=== PATIENT | male | born 1965 | race Caucasian/White ===

== ENCOUNTER 2016-05-26 06:59 | Emergency (ER) | payer BC, OTHER ==
[2016-05-26] MEDS ORDERED: METOPROLOL TARTRATE 50 MG TABLET PO ONE (09:24)
[2016-05-26] MEDS ORDERED: OXYCODONE-ACETAMINOPHEN 5-325 MG TABLET PO ONE (09:24)
[2016-05-26] MEDS ORDERED: SULFAMETHOXAZOLE/TRIMETHOPRIM 800-160 MG TABLET PO ONE (09:26)
[2016-05-26] MEDS ORDERED: LIDOCAINE 1% INJ-PF (10 MG/ML) 30 ML SDV INJ ONE (09:26)
--- NOTE | 2016-05-26 09:29 | ER Document Report ---
ED General - General Mode of Arrival: Ambulatory Information source: Patient TRAVEL OUTSIDE OF THE [place] IN LAST 30 DAYS: No - HPI Patient complains to provider of: Scrotal Pain Onset/Duration: Gradual, Persistent Associated symptoms: Chest pain - Now resolved. Off Blood pressure medication <ALENA CLAY - Last Filed: 05/26/16 09:24> <STEPHANI CROWLEY - Last Filed: 05/26/16 11:03> - General Chief Complaint: Chest Pressure Stated Complaint: CHILLS CHEST PRESSURE Notes: Patient is a 50-year-old male presenting to the emergency department concerned of a red, swollen area on the right side of his scrotum. 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 Patient reports performing these I&D' s by himself at home most of the time now, but he could not see this one well, so decided to come into the emergency department. Patient also complains of some chest pressure that he last night that is now resolved. Patient states he 's been off his metoprolol because he was trying to cut back medications to "avoid this place like the plague." (ALENA CLAY) - Related Data Allergies/Adverse Reactions: No Known Allergies Allergy (Verified 01/08/16 02:27) Past Medical History - General Information source: Patient - Social History Smoking Status: Current Every Day Smoker Chew tobacco use (# tins/day): No Frequency of alcohol use: None Drug Abuse: None Family History: Reviewed & Not Pertinent Patient has suicidal ideation: No Patient has homicidal ideation: No - Past Medical History Cardiac Medical History: Reports: Hx Hypertension Pulmonary Medical History: Reports: Hx Bronchitis, Hx COPD, Hx Pneumonia Renal/ Medical History: Denies: Hx Peritoneal Dialysis Musculoskeltal Medical History: Reports Hx Arthritis - back/fusion 2007 Skin Medical History: Reports Hx MRSA - multiple I&D Infectious Medical History: Reports: Hx MRSA Past Surgical History: Reports: Hx Cholecystectomy, Hx Orthopedic Surgery - L4- L5 fusion - Immunizations Hx Diphtheria, Pertussis, Tetanus Vaccination: Yes - 2009 <ALENA CLAY - Last Filed: 05/26/16 09:24> Review of Systems - Review of Systems Constitutional: No symptoms reported EENT: No symptoms reported Cardiovascular: See HPI, Chest pain - Pressure, now resolved Respiratory: No symptoms reported Gastrointestinal: No symptoms reported Genitourinary: No symptoms reported Male Genitourinary: See HPI, Other - swollen, painful area on scrotum Musculoskeletal: No symptoms reported Skin: No symptoms reported Hematologic/Lymphatic: No symptoms reported Neurological/Psychological: No symptoms reported -: Yes All other systems reviewed and negative <ALENA CLAY - Last Filed: 05/26/16 09:24> Physical Exam - General General appearance: Appears well, Alert - HEENT Head: Normocephalic, Atraumatic Eyes: Normal Pupils: PERRL - Respiratory Respiratory status: No respiratory distress Chest status: Nontender, Accessory muscle use Chest palpation: Normal - Cardiovascular Rhythm: Regular Heart sounds: Normal auscultation Murmur: No - Abdominal Inspection: Normal Distension: No distension Bowel sounds: Normal Tenderness: Nontender Organomegaly: No organomegaly - Genitourinary Scrotum: Other - Firm, hot, swollen 1.5 cm mass on right scrotum near perineal junction. - Back Back: Normal, Nontender - Extremities General upper extremity: Normal inspection, Nontender General lower extremity: Normal inspection, Nontender - Neurological Neuro grossly intact: Yes Cognition: Normal Mena Coma Scale Eye Opening: Spontaneous Mena Coma Scale Verbal: Oriented Naga Coma Scale Motor: Obeys Commands Naga Coma Scale Total: 15 Speech: Normal - Psychological Associated symptoms: Normal affect, Normal mood - Skin Skin Temperature: Warm Skin Moisture: Dry Skin Color: Other Skin irregularity: other - See scrotum exam <ALENA CLAY - Last Filed: 05/26/16 09:24> Course <ALENA CLAY - Last Filed: 05/26/16 09:24> - Laboratory Result Diagrams: 05/26/16 09:36 05/26/16 09:36 - EKG Interpretation by [facility] EKG shows normal: Sinus rhythm, Krum, Intervals, QRS Complexes, ST-T Waves Rate: Tachycardia - 116 When compared to previous EKG there are: No significant change <STEPHANI CROWLEY - Last Filed: 05/26/16 11:03> - Re-evaluation Re-evalutation: 05/26/16 10:49 The patient reports after metoprolol began to work and lowered his blood pressure and pulse rate, the chest pressure went away. He had been on metoprolol in the past but stopped taking it. He states his blood pressure seems to be fine most the time and only goes up when he is in pain or in distress or under duress. He has never been on long-term treatment to eradicate MRSA. Previously cultured abscesses show MRSA which is sensitive to Septra. (STEPHANI CROWLEY) - Vital Signs Vital signs: Temp Pulse Resp BP Pulse Ox 97.8 F 121 H 18 157/100 H 98 05/26/16 07:15 05/26/16 07:15 05/26/16 07:15 05/26/16 07:15 05/26/16 07:15 - Laboratory Laboratory results interpreted by me: 05/26/16 09:36 WBC 14.1 H Absolute Neutrophils 10.7 H Procedures <ALENA CLAY - Last Filed: 05/26/16 09:24> - Incision and Drainage Right Groin Time completed: 10:40 Type: Simple Anesthetic type: 1% Lidocaine mL's of anesthetic: 3 Blade size: 11 I&D procedure: Shurclens applied, Iodoform packing placed Incision Method: Incision made by scalpel Amount/type of drainage: minimal drainage <STEPHANI CROWLEY - Last Filed: 05/26/16 11:03> - Incision and Drainage Right Groin Notes: 05/26/16 10:47 The indurated area was fairly large, the actual cavity was small with a lot of scar tissue suggesting he had had abscesses in this area previously. There was minimal drainage and it did appear that it probably drained some previously. ( STEPHANI CROWLEY) Discharge <ALENA CLAY - Last Filed: 05/26/16 09:24> <STEPHANI CROWLEY - Last Filed: 05/26/16 11:03> - Discharge Clinical Impression: Scrotal wall abscess, Chest tightness or pressure, Tachycardia Hypertension Qualifiers: Hypertension type: essential hypertension Qualified Code(s): I10 - Essential ( primary) hypertension Condition: Stable Disposition: HOME, SELF-CARE Additional Instructions: Take the medications as prescribed Soak in a warm tub water a few times a day. Remove the gauze tomorrow afternoon. Follow-up with your primary care provider for further evaluation of your chest discomfort that occurs when you blood pressure and heart rate are up. Prescriptions: Metoprolol Tartrate [Lopressor 50 mg Tablet] 50 mg PO Q12H #60 tablet Oxycodone HCl/Acetaminophen [Percocet 5-325 mg Tablet] 1 - 2 tab PO ASDIR PRN # 15 tablet PRN Reason: Sulfamethoxazole/Trimethoprim [Bactrim Ds Tablet] 2 tab PO BID #40 tablet Forms: Return to Work Referrals: ED MOORE, KRISTAC [Primary Care Provider] - Follow up as needed Scribe Attestation: 05/26/16 10:59 I personally performed the services described in the documentation, reviewed and edited the documentation which was dictated to the scribe in my presence, and it accurately records my words and actions. (STEPHANI CROWLEY) Scribe Documentation - Scribe Written by Rodney:: Alena Clay 05/26/2016 0924 acting as scribe for :: Gomez <ALENA CLAY - Last Filed: 05/26/16 09:24>
[2016-05-26 09:49] LABS: ABSOLUTE BASOPHILS # (AUTO) 0.1 10^3/uL (0.0-0.2); ABSOLUTE EOSINOPHILS # (AUTO) 0.1 10^3/uL (0.0-0.6); ABSOLUTE LYMPHOCYTES (AUTO) 2.5 10^3/uL (0.5-4.7); ABSOLUTE MONOCYTES (AUTO) 0.7 10^3/uL (0.1-1.4); ABSOLUTE NEUT (AUTO) 10.7 10^3/uL (1.7-8.2); BASOPHILS % (AUTO) 0.6 % (0-2); EOSINOPHILS % (AUTO) 0.6 % (0-6); HEMOGLOBIN 16.3 g/dL (13.5-17.0); HGB HCT DIFFERENCE 0.9; LYMPHOCYTES % (AUTO) 17.8 % (13-45); MEAN CORPUSCULAR HEMOGLOBIN 30.8 pg (27.0-33.4); MEAN CORPUSCULAR VOLUME 90 fl (80-97); MONOCYTES % (AUTO) 5.2 % (3-13); RED BLOOD COUNT 5.31 10^6/uL (4.35-5.55); RED CELL DISTRIBUTION WIDTH 13.5 % (11.5-14.0); SEGMENTED NEUTROPHILS % (AUTO) 75.8 % (42-78); WHITE BLOOD COUNT 14.1 10^3/uL (4.0-10.5)
[2016-05-26 10:13] LABS: ALANINE AMINOTRANSFERASE 56 U/L (21-72); ALBUMIN 4.1 g/dL (3.5-5.0); ALKALINE PHOSPHATASE 74 U/L (38-126); ANION GAP 14 (5-19); ASPARTATE AMINO TRANSFERASE 22 U/L (17-59); BILIRUBIN,DIRECT 0.3 mg/dL (0.0-0.4); BILIRUBIN,TOTAL 0.7 mg/dL (0.2-1.3); BLOOD UREA NITROGEN 9 mg/dL (7-20); CALCIUM 9.8 mg/dL (8.4-10.2); CARBON DIOXIDE 24 mmol/L (22-30); CHLORIDE 105 mmol/L (98-107); CREATINE KINASE 108 U/L (55-170); CREATININE RESULT 0.87 mg/dL (0.52-1.25); GLUCOSE 97 mg/dL (75-110); POTASSIUM 4.4 mmol/L (3.6-5.0); SODIUM 143.3 mmol/L (137-145); TOTAL PROTEIN 6.6 g/dL (6.3-8.2)
--- NOTE | 2016-05-26 11:00 | EKG REPORT ---
SEVERITY:- OTHERWISE NORMAL ECG - SINUS TACHYCARDIA : Confirmed by: José Mart 26-May-2016 10:58:58
[2016-05-26 11:25] VITALS: BP 121/75
== END 2016-05-26 11:28 | disposition home or self-care (01) ==
LOC: ER 06:59
PROC: 0H9HXZZ Drainage of Right Upper Leg Skin, External Approach (ICD-10-PCS; principal; 2016-05-26)
DX: N49.2 Inflammatory disorders of scrotum (principal); R00.0 Tachycardia, unspecified; I10 Essential (primary) hypertension; R07.9 Chest pain, unspecified; F17.200 Nicotine dependence, unspecified, uncomplicated
CPT/HCPCS: 93005; 99284; 36415; 82550; 85025; 80053; 84484; 93010; 10060; J3490

== ENCOUNTER 2016-09-21 23:33 | Emergency (ER) | payer BC, OTHER ==
[2016-09-22] MEDS ORDERED: LIDOCAINE 1% INJ-PF (10 MG/ML) 30 ML SDV INJ ONE (00:30)
--- NOTE | 2016-09-22 00:30 | ER Document Report ---
ED General <JERRICA CROWLEYALL - Last Filed: 09/22/16 01:58> - General Mode of Arrival: Ambulatory Information source: Patient TRAVEL OUTSIDE OF THE [place] IN LAST 30 DAYS: No - HPI Onset: Other - Refer to HPI notes Similar symptoms previously: Yes Recently seen / treated by doctor: Yes <DA FONTENOT - Last Filed: 09/22/16 02:24> - General Chief Complaint: Post Surgical Pain Stated Complaint: POST SURGICAL PAIN Time Seen by Provider: 09/22/16 00:13 Notes: Patient is a 50-year-old male presents emergency department for draining MRSA cysts. Patient has 2 cysts and one of them on his buttocks ruptured and started draining x2 days ago and appears to be finished. The other has ruptured and the patient states his was able to squeeze some pus like fluid out of it today. Patient is 10 days post op from a spinal surgery. Patient had a laminectomy with decompression of the left L2-L3 on 09/11/2016. Patient has some generalized body pain. Patient took 2 oxycodone, clindamycin, and 4 bactrum. Patient states he had these medications at his house however he ran out of bactrum. Patient also has some chills and possibly a low grade fever. Patient has no known drug allergies. (DA FONTENOT) - Related Data Allergies/Adverse Reactions: No Known Allergies Allergy (Verified 01/08/16 02:27) Past Medical History - General Information source: Patient - Social History Smoking Status: Never Smoker Family History: None Patient has suicidal ideation: No Patient has homicidal ideation: No - Past Medical History Cardiac Medical History: Reports: Hx Hypertension Pulmonary Medical History: Reports: Hx Bronchitis, Hx COPD, Hx Pneumonia Musculoskeltal Medical History: Reports Hx Arthritis - back/fusion 2006 Skin Medical History: Reports Hx MRSA - multiple I&D Infectious Medical History: Reports: Hx MRSA Past Surgical History: Reports: Hx Cholecystectomy, Hx Orthopedic Surgery - L4- L5 fusion (2006) left L2-L3 laminectomy with decompression - Immunizations Hx Diphtheria, Pertussis, Tetanus Vaccination: Yes - 2009 <DA FONTENOT - Last Filed: 09/22/16 02:24> Review of Systems - Review of Systems Constitutional: No symptoms reported EENT: No symptoms reported Cardiovascular: No symptoms reported Respiratory: No symptoms reported Gastrointestinal: No symptoms reported Genitourinary: No symptoms reported Male Genitourinary: No symptoms reported Musculoskeletal: No symptoms reported Skin: See HPI Hematologic/Lymphatic: No symptoms reported Neurological/Psychological: No symptoms reported -: Yes All other systems reviewed and negative <TREVONDA ARIAS - Last Filed: 09/22/16 02:24> Physical Exam <STEPHANI CROWLEY - Last Filed: 09/22/16 01:58> - Vital signs Interpretation: Tachycardic <DA FONTENOT - Last Filed: 09/22/16 02:24> - Vital signs Vitals: Temp Pulse Resp BP Pulse Ox 97.9 F 116 H 16 129/90 H 98 09/21/16 23:37 09/21/16 23:37 09/21/16 23:37 09/21/16 23:37 09/21/16 23:37 - Notes Notes: GENERAL: Alert, interacts well, laying on side with a pillow between legs. Mild distress. HEAD: Normocephalic, atraumatic. EYES: Appear normal. Pupils equal, round, and reactive to light. ENT: Moist mucus membranes, tongue midline. NECK: Full range of motion. Supple. Trachea midline. LUNGS: Clear to auscultation bilaterally, no wheezes, rales, or rhonchi. No respiratory distress. HEART: Regular rate and rhythm. No murmurs, gallops, or rubs. ABDOMEN: Soft, non-tender. Non-distended. Normal bowel sounds. EXTREMITIES: Moves all 4 extremities spontaneously. Normal strength. No edema. NEUROLOGICAL: Alert and oriented x3. Normal speech. No focal neurological deficits. GSC 15. PSYCH: Normal affect, normal mood. SKIN: Warm, dry, normal turgor. Healing cyst area to the left buttocks that is dry and open. Right mid buttocks-perineal area has a firm, tender, indurated area. Midline lumbar incision is well healing with a scabbed area at the top. ( POLEÓNDA) Course <STEPHANI CROWLEY - Last Filed: 09/22/16 01:58> <LEÓN FONTENOTINE - Last Filed: 09/22/16 02:24> - Re-evaluation Re-evalutation: 09/22/16 01:58 The large indurated area was anesthetized with 1% lidocaine and incised with a # 11 blade. There was no pus found, as the patient reports a large amount had drained when it was squeezed prior to coming into the emergency room. There was a fair amount of necrotic fat and scar tissue encountered similar to the last time I did an I&D on his groin area. (STEPHANI CROWLEY) - Vital Signs Vital signs: Temp Pulse Resp BP Pulse Ox 98.0 F 116 H 16 111/87 H 97 09/22/16 02:00 09/21/16 23:37 09/22/16 02:01 09/22/16 02:00 09/22/16 02:01 Procedures - Incision and Drainage Right Groin Time completed: :55 Type: Simple Anesthetic type: 1% Lidocaine mL's of anesthetic: 5 Blade size: 11 I&D procedure: Shurclens applied, Iodoform packing placed Incision Method: Incision made by scalpel Amount/type of drainage: NONE <STEPHANI CROWLEY - Last Filed: 09/22/16 01:58> Discharge <STEPHANI CROWLEY - Last Filed: 09/22/16 01:58> <DA FONTENOT - Last Filed: 09/22/16 02:24> - Discharge Clinical Impression: Abscess of groin, right Condition: Stable Disposition: HOME, SELF-CARE Additional Instructions: Abscess You have an abscess (boil). This a pus-forming infection, usually due to staph. Some boils may be left to drain on their own, but most require lancing. From the time the tender lump first appears, it may be three or four days before the abscess is ready to shelly. Local heat and rest help at this stage of treatment. An antibiotic may prevent spread of the infection. Once the abscess is opened, packing may be placed into it. This is done so pus is not sealed inside by premature closure of the cavity. The packing will be removed at your follow-up visit or you may be advised to remove it yourself at home. Sometimes this packing must be replaced a few times during healing. The wound will heal with surprisingly little scar. Depending on the size and location of an abscess, healing can take one to four weeks. You may shower and wash the area around the incision site two or three times a day. Antibiotics may be prescribed, but are usually not necessary after an abscess has been drained. If you develop fever, chilling, worsening pain, or increasing swelling in the area, call the doctor or return immediately. Remove the packing in 2 days. Keep the wound open using Q-tips dipped in peroxide. Add the antibiotics as prescribed to the clindamycin you are currently taking. Follow-up with your doctor if not improving. RETURN TO THE EMERGENCY ROOM IF ANY NEW OR WORSENING SYMPTOMS. Prescriptions: Sulfamethoxazole/Trimethoprim [Bactrim Ds Tablet] 2 tab PO BID #40 tablet Scribe Attestation: 09/22/16 02:00 I personally performed the services described in the documentation, reviewed and edited the documentation which was dictated to the scribe in my presence, and it accurately records my words and actions. (STEPHANI CROWLEY) Scribe Documentation - Scribe Written by Rodney:: Rodney Garland, 09/22/2016 2:22 acting as scribe for :: Gomez <DA FONTENOT - Last Filed: 09/22/16 02:24>
[2016-09-22] MEDS ORDERED: SULFAMETHOXAZOLE/TRIMETHOPRIM 800-160 MG TABLET PO ONE (01:57)
[2016-09-22 02:12] VITALS: BP 111/87
== END 2016-09-22 02:12 | disposition home or self-care (01) ==
LOC: ER 23:33
PROC: 0H9HXZZ Drainage of Right Upper Leg Skin, External Approach (ICD-10-PCS; principal; 2016-09-21)
DX: L02.214 Cutaneous abscess of groin (principal); G89.18 Other acute postprocedural pain; R50.9 Fever, unspecified; Z86.14 Personal history of Methicillin resistant Staphylococcus aureus infection
CPT/HCPCS: 99283

== ENCOUNTER 2016-11-26 11:09 | Emergency (ER) | payer BC, OTHER ==
[2016-11-26] MEDS ORDERED: LIDOCAINE 1% INJ-PF (10 MG/ML) 30 ML SDV INJ ONE (12:05)
--- NOTE | 2016-11-26 12:10 | ER Document Report ---
HPI - HPI Pain Level: 4 Notes: Patient is a 50-year-old male with a history of MRSA and recurrent abscesses presents the ED complaining of 3 abscesses to his groin area 5 days. Patient states that he has one large one in the perineal area that most likely needs incision and drainage, while the other 2 are small and early. Patient states that he has been taking his Bactrim with minimal relief. He has not noticed any purulent discharge. Patient has associated pain and swelling without any red streaks. Patient states that he has had several I&D's in the past because of recurrent abscesses/MRSA infections. He denies any drug allergies or other significant past medical history. Denies any headache, fever, URI, sore throat , chest pain, palpitations, syncope, cough, shortness of breath, wheeze, dyspnea , abdominal pain, nausea/vomiting/diarrhea, urinary retention, dysuria, hematuria, loss of control of bowel or bladder, numbness/tingling. - ROS Notes: REVIEW OF SYSTEMS: CONSTITUTIONAL : Denies fever, chills, or sweats. Denies recent illness. EENT: Denies eye, ear, throat, or mouth pain or symptoms. Denies nasal or sinus congestion or discharge. Denies throat, tongue, or mouth swelling or difficulty swallowing. CARDIOVASCULAR: Denies chest pain. Denies palpitations or racing or irregular heart beat. Denies ankle edema. RESPIRATORY: Denies cough, cold, or chest congestion. Denies shortness of breath, difficulty breathing, or wheezing. GASTROINTESTINAL: Denies abdominal pain or distention. Denies nausea, vomiting , or diarrhea. Denies blood in vomitus, stools, or per rectum. Denies black, tarry stools. Denies constipation. GENITOURINARY: Denies difficulty urinating, painful urination, burning, frequency, blood in urine, or discharge. MUSCULOSKELETAL: Denies back or neck pain or stiffness. Denies joint pain or swelling. SKIN: see hpi NEUROLOGICAL: Denies confusion or altered mental status. Denies passing out or loss of consciousness. Denies dizziness or lightheadedness. Denies headache. Denies weakness or paralysis or loss of use of either side. Denies problems with gait or speech. Denies sensory loss, numbness, or tingling. ALL OTHER SYSTEMS REVIEWED AND NEGATIVE. Dictation was performed using Dragon voice recognition software - DERM Skin Color: Normal Past Medical History - Social History Smoking Status: Unknown if Ever Smoked Family History: None Patient has suicidal ideation: No Patient has homicidal ideation: No - Past Medical History Cardiac Medical History: Reports: Hx Hypertension Pulmonary Medical History: Reports: Hx Bronchitis, Hx COPD, Hx Pneumonia Renal/ Medical History: Denies: Hx Peritoneal Dialysis Musculoskeltal Medical History: Reports Hx Arthritis - back/fusion 2006 Skin Medical History: Reports Hx MRSA - multiple I&D Infectious Medical History: Reports: Hx MRSA Past Surgical History: Reports: Hx Cholecystectomy, Hx Orthopedic Surgery - L4- L5 fusion (2006) left L2-L3 laminectomy with decompression - Immunizations Hx Diphtheria, Pertussis, Tetanus Vaccination: Yes - 2009 Vertical Provider Document - CONSTITUTIONAL Agree With Documented VS: Yes Notes: PHYSICAL EXAMINATION: GENERAL: Well-appearing, well-nourished and in no acute distress. LUNGS: Breath sounds clear to auscultation bilaterally and equal. No wheezes rales or rhonchi. HEART: Regular rate and rhythm without murmurs, rubs, gallops. ABDOMEN: Soft, nontender, nondistended abdomen. No guarding, no rebound. No masses appreciated. Normal bowel sounds present. No CVA tenderness bilaterally. Musculoskeletal: LE's b/l: FROM to passive/active. Strength 5+/5. Extremities: No cyanosis, clubbing, or edema b/l. Peripheral pulses 2+. Capillary refill less than 3 seconds. NEUROLOGICAL: Cranial nerves grossly intact. Normal speech, normal gait. Normal sensory, motor exams PSYCH: Normal mood, normal affect. SKIN: Small 0.2cm abscess to the b/l groin. + mild tenderness and mild induration. + 3cm abscess/indurated area to the perineum with tenderness to palp. No discharge or streaks noted. No obvious inguinal adenopathy. - INFECTION CONTROL TRAVEL OUTSIDE OF THE [place] IN LAST 30 DAYS: No - RESPIRATORY O2 Sat by Pulse Oximetry: 98 Course - Re-evaluation Re-evalutation: 11/26/16 13:07 Patient is an afebrile, well-hydrated, 50-year-old male who presents the ED with an abscess to the perineum area that required I&D as well as 2 smaller abscesses that did not warrant I&D at this time. Vitals are stable. PE otherwise unremarkable. Wound culture was obtained. I&D was performed successfully without any complications and packing was placed. Wound dressing was placed. Wound instructions were reviewed. I will send the patient home on clindamycin to take as directed 4 times a day for 10 days, patient may stop the Bactrim. C. difficile precautions reviewed. Risks and benefits are understood. Low suspicion for any necrotizing fasciitis, sepsis, or other systemic emergent condition at this time. Patient is aware that his condition can change from initial presentation and he needs to monitor symptoms closely and seek medical attention if any acute changes. Recheck with your PCM in 2-3 days, come to the ED for recheck if needed. Return to the ED otherwise for any worsening/concerning symptoms. Consider consult with a general surgeon as well. Patient is in agreement. - Vital Signs Vital signs: Temp Pulse Resp BP Pulse Ox 98.7 F 110 H 18 143/103 H 98 11/26/16 11:15 11/26/16 11:15 11/26/16 11:15 11/26/16 11:15 11/26/16 11:15 Procedures - Incision and Drainage Left Groin Time completed: 13:05 Type: Simple Anesthetic type: 1% Lidocaine mL's of anesthetic: 8 Blade size: 11 I&D procedure: Iodoform packing placed, Sterile dressing applied, Other - chlorhexadine Incision Method: Incision made by scalpel Amount/type of drainage: Purulent approx 4cc Notes: 11/26/16 13:05 Incision and drainage procedure, risks, benefits reviewed with the patient. Verbal and written consent obtained. Sterile technique utilized. The area was extensively cleansed utilizing chlorhexadine and saline. A 21-gauge needle was utilized to anesthetize the area using 6 mL's of 1% lidocaine without epinephrine. Once adequate anesthesia was provided, a #11 scalpel was utilized to make a 2 cm elliptical incision at the site of the abscess. Moderate amounts of purulent material was expressed. Wound culture obtained. Hemostats were then utilized to break up any remaining muscular pockets within the abscess. The wound was then lightly packed using 1/4" iodoform. Wound dressing and triple antibiotic placed. Minimal blood loss (approximately 2-3 cc's). Patient tolerated procedure well. No complications. Discharge - Discharge Clinical Impression: Abscess Condition: Stable Disposition: HOME, SELF-CARE Instructions: Abscess ([facility]), Clindamycin ([facility]), MRSA Cellulitis ([facility]), Post Incision and Drainage Additional Instructions: Do not shower or bathe for 24 hours. After 24 hours she may shower but no submersion of the wound under water. Keep the original dressing on the wound for 24 hours unless the drainage soaks through. Change the dressing daily thereafter and use a small amount of triple antibiotic ointment over the open wound. Return to the ED and/or your PCM in 2-3 days for recheck and continue direction for wound packing. Monitor for any signs of worsening pain or redness , streaks, and/or fever. Return to the ED if noticing any of the above symptoms or as needed. Take medications as directed. Prescriptions: Clindamycin HCl [Cleocin 300 mg Capsule] 300 mg PO TID #30 capsule Forms: Elevated Blood Pressure Referrals: HALINA MATTA MD [ACTIVE STAFF] - Follow up in 1 week
[2016-11-26 13:26] VITALS: BP 143/99
== END 2016-11-26 13:26 | disposition home or self-care (01) ==
LOC: ER 11:09
PROC: 0H9JXZZ Drainage of Left Upper Leg Skin, External Approach (ICD-10-PCS; principal; 2016-11-26)
DX: L02.214 Cutaneous abscess of groin (principal)
CPT/HCPCS: 99283; 87070; 87205; 87075; 87077; 87186; 10060; A6266; J3490

== ENCOUNTER 2017-04-15 12:22 | Emergency (ER) | payer BC, OTHER ==
[2017-04-15] MEDS ORDERED: LIDOCAINE 1% INJ-PF (10 MG/ML) 30 ML SDV INJ ONE (12:39)
--- NOTE | 2017-04-15 12:43 | ER Document Report ---
ED General - General Chief Complaint: Abscess Stated Complaint: ABSCESS Time Seen by Provider: 04/15/17 12:35 Mode of Arrival: Ambulatory Information source: Patient Notes: 51-year-old male presents with 1 week duration of right breast abscess. Patient denies any fevers or chills denies any nausea vomiting or diarrhea. Patient notes he has been using clindamycin and mupirocin the area has gotten worse TRAVEL OUTSIDE OF THE [place] IN LAST 30 DAYS: No - HPI Onset: Last week Onset/Duration: Persistent Quality of pain: Achy Severity: Mild Pain Level: 1 Associated symptoms: Other Exacerbated by: Other - touch Relieved by: Denies Similar symptoms previously: Yes - previous mrsa Recently seen / treated by doctor: No - Related Data Allergies/Adverse Reactions: No Known Allergies Allergy (Verified 04/15/17 12:23) Past Medical History - Social History Smoking Status: Never Smoker Cigarette use (# per day): No Chew tobacco use (# tins/day): No Smoking Education Provided: No Family History: None - Past Medical History Cardiac Medical History: Reports: Hx Hypertension Pulmonary Medical History: Reports: Hx Bronchitis, Hx COPD, Hx Pneumonia Renal/ Medical History: Denies: Hx Peritoneal Dialysis Musculoskeltal Medical History: Reports Hx Arthritis - back/fusion 2006 Skin Medical History: Reports Hx MRSA - multiple I&D Infectious Medical History: Reports: Hx MRSA Past Surgical History: Reports: Hx Cholecystectomy, Hx Orthopedic Surgery - L4- L5 fusion (2006) left L2-L3 laminectomy with decompression - Immunizations Hx Diphtheria, Pertussis, Tetanus Vaccination: Yes - 2009 Review of Systems - Review of Systems Notes: REVIEW OF SYSTEMS: CONSTITUTIONAL : Denies fever, chills, or sweats. Denies recent illness. EENT: Denies eye, ear, throat, or mouth pain or symptoms. Denies nasal or sinus congestion or discharge. Denies throat, tongue, or mouth swelling or difficulty swallowing. CARDIOVASCULAR: Denies chest pain. Denies palpitations or racing or irregular heart beat. Denies ankle edema. RESPIRATORY: Denies cough, cold, or chest congestion. Denies shortness of breath, difficulty breathing, or wheezing. GASTROINTESTINAL: Denies abdominal pain or distention. Denies nausea, vomiting , or diarrhea. Denies blood in vomitus, stools, or per rectum. Denies black, tarry stools. Denies constipation. GENITOURINARY: Denies difficulty urinating, painful urination, burning, frequency, blood in urine, or discharge. MUSCULOSKELETAL: Denies back or neck pain or stiffness. Denies joint pain or swelling. SKIN: right breast abscess HEMATOLOGIC : Denies easy bruising or bleeding. LYMPHATIC: Denies swollen, enlarged glands. NEUROLOGICAL: Denies confusion or altered mental status. Denies passing out or loss of consciousness. Denies dizziness or lightheadedness. Denies headache. Denies weakness or paralysis or loss of use of either side. Denies problems with gait or speech. Denies sensory loss, numbness, or tingling. Denies seizures. PSYCHIATRIC: Denies anxiety or stress. Denies depression, suicidal ideation, or homicidal ideation. ALL OTHER SYSTEMS REVIEWED AND NEGATIVE. Dictation was performed using [employer] voice recognition software PHYSICAL EXAMINATION: GENERAL: Well-appearing, well-nourished and in no acute distress. HEAD: Atraumatic, normocephalic. EYES: Pupils equal round extraocular movements intact, conjunctiva are normal. ENT: Nares patent NECK: Normal range of motion LUNGS: No respiratory distress Musculoskeletal: Normal range of motion NEUROLOGICAL: Normal speech, normal gait. PSYCH: Normal mood, normal affect. SKIN: just medial to the right nipple is an abscess tender fluctuance with some drainage, tender ot the right arm pit woithout streaking Physical Exam - Vital signs Vitals: Temp Pulse Resp BP Pulse Ox 98.1 F 113 H 20 135/91 H 97 04/15/17 12:27 04/15/17 12:27 04/15/17 12:27 04/15/17 12:27 04/15/17 12:27 Course - Re-evaluation Re-evalutation: 04/15/17 12:42 pt offered bed, would rather be cut sitting up, will I+D and continue treatment. - Vital Signs Vital signs: Temp Pulse Resp BP Pulse Ox 97.6 F 107 H 18 135/93 H 98 04/15/17 13:19 04/15/17 13:19 04/15/17 13:19 04/15/17 13:19 04/15/17 13:19 Procedures - Incision and Drainage Right Chest Time completed: 12:00 Type: Simple Anesthetic type: 1% Lidocaine mL's of anesthetic: 5 Blade size: 11 I&D procedure: Betadine prep applied, Sterile dressing applied Incision Method: Incision made by scalpel Amount/type of drainage: moderate amount of pus Discharge - Discharge Clinical Impression: Abscess of breast, right Condition: Stable Disposition: HOME, SELF-CARE Instructions: Abscess ([facility]), Post Incision and Drainage Additional Instructions: Follow up with your physician tomorrow for further care or return to the ED IMMEDIATELY if symptoms worsen or new concerns occur. If you cannot afford to follow up with your primary care physician a list of low cost clinics have been provided at the end of your discharge papers as well. Prescriptions: Hydrocodone/Acetaminophen [[place] 5-325 mg Tablet] 1 tab PO Q6 #14 tablet
[2017-04-15 13:30] VITALS: BP 135/93
== END 2017-04-15 13:20 | disposition home or self-care (01) ==
LOC: ER 12:22
PROC: 0H9TXZZ (ICD-10-PCS; principal; 2017-04-15)
DX: N61.1 Abscess of the breast and nipple (principal)
CPT/HCPCS: 99283; 10060; J3490

== ENCOUNTER 2018-10-24 10:04 | Emergency (ER) | payer BC, OTHER ==
[2018-10-24] MEDS ORDERED: ASPIRIN 81 MG TABLET, CHEWABLE PO ONE (10:13)
[2018-10-24 10:21] LABS: ABSOLUTE BASOPHILS # (AUTO) 0.1 10^3/uL (0.0-0.2); ABSOLUTE EOSINOPHILS # (AUTO) 0.3 10^3/uL (0.0-0.6); ABSOLUTE LYMPHOCYTES (AUTO) 2.4 10^3/uL (0.5-4.7); ABSOLUTE MONOCYTES (AUTO) 0.6 10^3/uL (0.1-1.4); ABSOLUTE NEUT (AUTO) 5.6 10^3/uL (1.7-8.2); BASOPHILS % (AUTO) 0.9 % (0-2); EOSINOPHILS % (AUTO) 2.9 % (0-6); HEMATOCRIT 42.3 % (37.9-51.0); HEMOGLOBIN 14.5 g/dL (13.5-17.0); LYMPHOCYTES % (AUTO) 26.8 % (13-45); MEAN CORPUSCULAR HEMOGLOBIN 31.5 pg (27.0-33.4); MEAN CORPUSCULAR HGB CONC 34.3 g/dL (32.0-36.0); MEAN CORPUSCULAR VOLUME 92 fl (80-97); MONOCYTES % (AUTO) 6.7 % (3-13); PLATELET COUNT 241 10^3/uL (150-450); RED BLOOD COUNT 4.61 10^6/uL (4.35-5.55); RED CELL DISTRIBUTION WIDTH 14.1 % (11.5-14.0); SEGMENTED NEUTROPHILS % (AUTO) 62.7 % (42-78); TOTAL CELLS COUNTED % (AUTO) 100 %; WHITE BLOOD COUNT 8.9 10^3/uL (4.0-10.5)
--- NOTE | 2018-10-24 10:41 | ER Document Report ---
ED Medical Screen (RME) - General Chief Complaint: Chest Pain Stated Complaint: CHEST PAIN Time Seen by Provider: 10/24/18 10:38 TRAVEL OUTSIDE OF THE [place] IN LAST 30 DAYS: No - HPI Notes: 10/24/18 10:38 52-year-old male presents the ED for complaints of chest pain that started approximately 1/2 hours ago, substernal that radiated to his left chest while he was driving. Had called EMS, 3 nitro was given, chest pain mostly subsided. Patient states 2 weeks ago he had a heart attack while in [place], he had 2 stents placed in his proximal RCA and in his main LAD, his main LAD had 100% occlusion. Patient states he did take 325 baby aspirin given by EMS. Patient was a pack-a-day smoker for over 30 years, recently quit due to heart attack. Denies fevers, chills, palpitations, dyspnea, nausea, vomiting, diarrhea, abdominal pain, hematuria,blurred vision, double vision, loss of vision, speech changes, LH, dizziness, syncope, headaches, wheezing, ST, URI, neck pain, weakness, bowel or bladder dysfunction, saddle anesthesia, numbness or tingling in bilateral upper or lower extremities equally, muscle paralysis, weakness in bilateral upper or lower extremities equally or rash. PHYSICAL EXAMINATION: Vital signs reviewed. GENERAL: Well-appearing, well-nourished and in no acute distress. HEAD: Atraumatic, normocephalic. NECK: Normal range of motion CV: Heart regular rate and rhythm LUNGS: No respiratory distress MDM: Patient seen and examined for rapid initial assessment. Vital signs reviewed. A comprehensive ED assessment and evaluation of the patient, analysis of test results and completion of the medical decision making process will be conducted by additional ED providers. *Note is created using voice recognition software and may contain spelling, syntax or grammatical errors. - Related Data Allergies/Adverse Reactions: No Known Allergies Allergy (Verified 04/15/17 12:23) Past Medical History - Past Medical History Cardiac Medical History: Reports: Hx Hypertension Pulmonary Medical History: Reports: Hx Bronchitis, Hx COPD, Hx Pneumonia Renal/ Medical History: Denies: Hx Peritoneal Dialysis Musculoskeltal Medical History: Reports Hx Arthritis - back/fusion 2007 Skin Medical History: Reports Hx MRSA - multiple I&D Infectious Medical History: Reports: Hx MRSA Past Surgical History: Reports: Hx Cholecystectomy, Hx Orthopedic Surgery - L4- L5 fusion (2006) left L2-L3 laminectomy with decompression - Immunizations Hx Diphtheria, Pertussis, Tetanus Vaccination: Yes - 2009 Physical Exam - Vital signs Vitals: Pulse Ox 95 10/24/18 10:24 Course - Vital Signs Vital signs: Temp Pulse Resp BP Pulse Ox 95 10/24/18 10:24 - Laboratory Result Diagrams: 10/24/18 10:08 10/24/18 10:08 Laboratory results interpreted by me: 10/24/18 10:08 RDW 14.1 H
[2018-10-24 10:57] LABS: CREATINE KINASE MB 2.15 ng/mL (<4.55)
[2018-10-24 10:59] LABS: TROPONIN I 0.069 ng/mL
[2018-10-24 11:06] LABS: ALBUMIN 4.2 g/dL (3.5-5.0); ALKALINE PHOSPHATASE 68 U/L (38-126); ANION GAP 10 (5-19); ASPARTATE AMINO TRANSFERASE 58 U/L (17-59); BILIRUBIN,DIRECT 0.4 mg/dL (0.0-0.4); BILIRUBIN,TOTAL 0.4 mg/dL (0.2-1.3); BLOOD UREA NITROGEN 13 mg/dL (7-20); CALCIUM 9.5 mg/dL (8.4-10.2); CARBON DIOXIDE 24 mmol/L (22-30); CHLORIDE 104 mmol/L (98-107); CREATINE KINASE 297 U/L (55-170); GLUCOSE 97 mg/dL (75-110); POTASSIUM 4.8 mmol/L (3.6-5.0)
--- NOTE | 2018-10-24 11:32 | RADIOLOGY REPORT (SQ) ---
EXAM DESCRIPTION: CHEST SINGLE VIEW COMPLETED DATE/TIME: 10/24/2018 11:06 am REASON FOR STUDY: bed 15 cp COMPARISON: None. NUMBER OF VIEWS: One view. TECHNIQUE: Single frontal radiographic view of the chest acquired. LIMITATIONS: None. FINDINGS: LUNGS AND PLEURA: No opacities, masses or pneumothorax. No pleural effusion. MEDIASTINUM AND HILAR STRUCTURES: No masses. Contour normal. HEART AND VASCULAR STRUCTURES: Heart normal in size. Normal vasculature. BONES: No acute findings. HARDWARE: None in the chest. OTHER: No other significant finding. IMPRESSION: NO SIGNIFICANT RADIOGRAPHIC FINDING IN THE CHEST. TECHNICAL DOCUMENTATION: JOB ID: [id number] [employer]- All Rights Reserved Reading location - IP/workstation name: [email or web address]
--- NOTE | 2018-10-24 11:46 | ER Document Report ---
ED Cardiac - General Chief Complaint: Chest Pain Stated Complaint: CHEST PAIN Time Seen by Provider: 10/24/18 10:38 Notes: Patient's here to be evaluated after having an episode of chest pain. Patient says that he was out of town this past Sunday, 10 or 11 days ago, when he experienced severe chest pains and went to a local hospital where he was found to have a STEMI with almost complete occlusion of his LAD and significantly close to occlusion of his RCA arteries. He had 2 stents placed. He stayed in ICU at that hospital for 2 days and then another day on the floor and then was seen by employee relations specialist and cleared to return home. He is scheduled to see his primary care provider in the next day or so to be referred to a local cardiolo gist. Today, while "running errands" patient had the onset of pain very similar in location to what he had with his STEMI, epigastric pain with radiation to the left shoulder and left arm. However, the pain this time was much less than what he had with his STEMI 11 days ago. Patient did not take his own nitroglycerin because his blood pressure was low. When EMS arrived, they gave the patient 100 mcg of fentanyl and 3 sublingual nitros. Patient says that after he received all that medication, his pain was relieved and gone and he no longer has any pain at this time. He was nauseated but never vomited. Did not feel short of breath. Has not had any pains in between being discharged from that out of town facility until now. TRAVEL OUTSIDE OF THE [place] IN LAST 30 DAYS: No - Related Data Allergies/Adverse Reactions: No Known Allergies Allergy (Verified 04/15/17 12:23) Past Medical History - Social History Smoking Status: Former Smoker - Stopped 2 weeks ago. Chew tobacco use (# tins/day): No Frequency of alcohol use: None Drug Abuse: None Family History: None, Reviewed & Not Pertinent Patient has suicidal ideation: No Patient has homicidal ideation: No - Past Medical History Cardiac Medical History: Reports: Hx Hypertension Pulmonary Medical History: Reports: Hx Bronchitis, Hx COPD, Hx Pneumonia Musculoskeletal Medical History: Reports Hx Arthritis - back/fusion 2006 Skin Medical History: Reports Hx MRSA - multiple I&D Infectious Medical History: Reports: Hx MRSA Past Surgical History: Reports: Hx Cardiac Catheterization - 11 days ago, see HPI, Hx Cholecystectomy, Hx Orthopedic Surgery - L4-L5 fusion (2006) left L2-L3 laminectomy with decompression - Immunizations Hx Diphtheria, Pertussis, Tetanus Vaccination: Yes - 2010 Review of Systems - Review of Systems Notes: REVIEW OF SYSTEMS: CONSTITUTIONAL : Denies fever. EENT: Denies eye, ear, nose or mouth or throat pain or other symptoms. CARDIOVASCULAR: See HPI. Denies any swelling of either lower leg. RESPIRATORY: Denies cough, chest congestion, or shortness of breath. GASTROINTESTINAL: Denies abdominal pain or nausea, vomiting, or diarrhea. GENITOURINARY: Denies difficulty or painful urinating, urinary frequency, blood in urine. MUSCULOSKELETAL: Denies back or neck pain. Denies joint pain or swelling. SKIN: Denies rash or skin lesions. NEUROLOGICAL: Denies LOC or altered mental status. Denies headache. Denies sensory loss or motor deficits. ALL OTHER SYSTEMS REVIEWED AND NEGATIVE. Physical Exam - Vital signs Vitals: Resp Pulse Ox 12 95 10/24/18 10:14 10/24/18 10:14 Interpretation: Normal Notes: PHYSICAL EXAMINATION: GENERAL: Well-appearing, in no acute distress. Vital signs are all essentially normal. HEAD: Atraumatic, normocephalic. EYES: Pupils equal round and reactive to light, extraocular movements intact. ENT: oropharynx clear without exudates. Moist mucous membranes. NECK: Normal range of motion, supple. LUNGS: Breath sounds clear and equal bilaterally. No chest wall tenderness. HEART: Regular rate and rhythm without murmurs. ABDOMEN: Soft, nontender. No guarding or rebound. No masses. BACK: No tenderness throughout entire back. EXTREMITIES: Normal range of motion without pain. Negative Homans bilaterally. No swelling or anything to suggest blood clots. NEUROLOGICAL: Normal speech, normal gait. Normal sensory, motor, and reflex exams. Awake, alert, and oriented x3. Cranial nerves normal. SKIN: Warm, dry, no rashes. Course - Re-evaluation Re-evalutation: 10/24/18 18:51 Patient remained pain-free throughout his stay in the department. I contacted cardiology at [facility] and they were willing to accept the patient for transfer, but do not have any beds available at this time. I then contacted [facility] and they were also were agreeable to accepting the patient and indicated they were likely going to get a bed this evening. At their request, patient was started on a heparin drip. He is already on baby aspirin and PRASUGREL. I did call this patient's primary care provider,, nathalie Peres to see if she had a cardiology preference and she indicated none. - Vital Signs Vital signs: Temp Pulse Resp BP Pulse Ox 98.0 F 19 110/78 96 10/24/18 16:59 10/24/18 17:00 10/24/18 16:59 10/24/18 17:00 - Laboratory Result Diagrams: 10/24/18 10:08 10/24/18 10:08 Laboratory results interpreted by me: 10/24/18 10/24/18 10/24/18 10:08 10:08 11:38 RDW 14.1 H Creatine Kinase 297 H Urine Ketones TRACE H Urine Urobilinogen 2.0 H - Diagnostic Test Radiology results interpreted by co: 10/24/18 18:55 Chest x-ray is unremarkable. Discharge - Discharge Clinical Impression: Chest pain, Unstable angina Condition: Stable Disposition: [facility]
[2018-10-24 12:02] LABS: APPEARANCE,URINE SLIGHTLY-CLOUDY; BILIRUBIN,URINE NEGATIVE (NEGATIVE); COLOR,URINE YELLOW; GLUCOSE, URINE NEGATIVE (NEGATIVE); KETONES,URINE TRACE mg/dL (NEGATIVE); LEUKOCYTE ESTERASE,URINE NEGATIVE (NEGATIVE); NITRITE,URINE NEGATIVE (NEGATIVE); PROTEIN,URINE NEGATIVE (NEGATIVE); URINE SPECIFIC GRAVITY 1.029
--- NOTE | 2018-10-24 12:51 | EKG REPORT ---
SEVERITY:- ABNORMAL ECG - SINUS RHYTHM BORDERLINE LEFT AXIS DEVIATION NONSPECIFIC T ABNORMALITIES, INFERIOR LEADS : Confirmed by: Nando Cleveland MD 24-Oct-2018 12:50:48
[2018-10-24] MEDS ORDERED: HEPARIN SOD (PORCINE) 1,000 UNIT/ML 10 ML VIAL IV ONE (14:58)
[2018-10-24] MEDS ORDERED: HEPARIN SODIUM,PORCINE/D5W 25,000 UNIT/250 ML RTUINJ IV PRN (14:58)
[2018-10-24 17:04] VITALS: BP 110/78
--- NOTE | 2018-10-24 19:10 | EKG REPORT ---
SEVERITY:- ABNORMAL ECG - SINUS RHYTHM BORDERLINE LEFT AXIS DEVIATION NONSPECIFIC T ABNORMALITIES, INFERIOR LEADS : Confirmed by: Nando Cleveland MD 24-Oct-2018 19:09:40
== END 2018-10-24 17:21 | disposition short-term general hospital (02) ==
LOC: ER 10:04
DX: R07.9 Chest pain, unspecified (principal); I20.0 Unstable angina; I10 Essential (primary) hypertension; J44.9 Chronic obstructive pulmonary disease, unspecified; Z86.14 Personal history of Methicillin resistant Staphylococcus aureus infection; I25.2 Old myocardial infarction
CPT/HCPCS: 93005; 96376; 99285; 96365; 36415; 82553; 82550; 85025; 80053; 81001; 84484; 71045; 93010; J1644 ×2

== ENCOUNTER 2018-12-07 10:50 | Emergency (ER) | payer BC, OTHER ==
[2018-12-07] MEDS ORDERED: NORMAL SALINE 1000 ML 1,000 ML IV ONE (11:14)
--- NOTE | 2018-12-07 11:16 | ER Document Report ---
ED Medical Screen (RME) - General Stated Complaint: FLANK PAIN Time Seen by Provider: 12/07/18 11:11 TRAVEL OUTSIDE OF THE [place] IN LAST 30 DAYS: No - HPI Notes: 12/07/18 11:14 Patient is a 52-year-old male with history of coronary artery disease, hypertension, cholecystectomy who presents complaining of right mid to lower abdominal pain that has been developing since Sunday. Patient states that it started out with soreness towards his back with hematuria. Patient states that since then he has had pain to his right anterolateral abdomen and only able to void small amounts. He has n/v associated. He is having normal bowel movements. Denies drug allergies. No fever. Pt received fentanyl, toradol, and zofran by EMS. I have treated and performed a rapid initial assessment of this patient. A comprehensive ED assessment and evaluation of the patient, analysis of test results and completion of medical decision making process will be conducted by additional ED providers. History most concerning for possible stone with the dysuria, hematuria, and pain associated. Differential still includes appendicitis as well so we will start with a plain CT scan to further evaluate which allows for repeat CT with contrast if needed and to see if they can notice the appendix on a plain CT first while still evaluating for stones. PHYSICAL EXAMINATION: GENERAL: Well-appearing, well-nourished and in no acute distress. A&Ox4. Answers questions appropriately. Abdomen: There is noted tenderness to the right anterolateral lower abdomen to palpation. No CVA tenderness. - Related Data Allergies/Adverse Reactions: No Known Allergies Allergy (Verified 12/07/18 11:10) Past Medical History - Past Medical History Cardiac Medical History: Reports: Hx Hypertension Pulmonary Medical History: Reports: Hx Bronchitis, Hx COPD, Hx Pneumonia Renal/ Medical History: Denies: Hx Peritoneal Dialysis Musculoskeltal Medical History: Reports Hx Arthritis - back/fusion 2006 Skin Medical History: Reports Hx MRSA - multiple I&D Infectious Medical History: Reports: Hx MRSA Past Surgical History: Reports: Hx Cardiac Catheterization - 11 days ago, see HPI, Hx Cholecystectomy, Hx Orthopedic Surgery - L4-L5 fusion (2006) left L2-L3 laminectomy with decompression - Immunizations Hx Diphtheria, Pertussis, Tetanus Vaccination: Yes - 2009 Physical Exam - Vital signs Vitals: Temp Pulse Resp BP Pulse Ox 98.2 F 85 14 124/86 H 95 12/07/18 11:02 10/12/19 11:02 12/07/18 11:02 12/07/18 11:02 12/07/18 11:02 Course - Vital Signs Vital signs: Temp Pulse Resp BP Pulse Ox 98.2 F 85 14 124/86 H 95 12/07/18 11:02 12/07/18 11:02 12/07/18 11:02 12/07/18 11:02 12/07/18 11:02
[2018-12-07 11:49] LABS: APPEARANCE,URINE SLIGHTLY-CLOUDY; BILIRUBIN,URINE NEGATIVE (NEGATIVE); COLOR,URINE AMBER; GLUCOSE, URINE NEGATIVE (NEGATIVE); KETONES,URINE TRACE mg/dL (NEGATIVE); PROTEIN,URINE 30 mg/dL (NEGATIVE); URINE SPECIFIC GRAVITY 1.031
--- NOTE | 2018-12-07 11:57 | RADIOLOGY REPORT (SQ) ---
EXAM DESCRIPTION: CT ABD/PELVIS NO ORAL OR IV COMPLETED DATE/TIME: 12/07/2018 11:37 am REASON FOR STUDY: Rt abd pain, dysuria COMPARISON: 2011 TECHNIQUE: CT scan of the abdomen and pelvis performed without intravenous or oral contrast. Images reviewed with lung, soft tissue, and bone windows. Reconstructed coronal and sagittal MPR images revi ewed. All images stored on PACS. All CT scanners at this facility use dose modulation, iterative reconstruction, and/or weight based d osing when appropriate to reduce radiation dose to as low as reasonably achievable (ALARA). [facility]: Dose Right [facility]: CareDose [facility]: Dose Right [facility]: Teradose 4D [facility]: [employer] RADIATION DOSE: CT Rad equipment meets quality standard of care and radiation dose reduction techniq ues were employed. CTDIvol: 17.6 mGy. DLP: 1003 mGy-cm.mGy. LIMITATIONS: Artifact from lower lumbar fusion. FINDINGS: LOWER CHEST: No significant findings. No nodules or infiltrates. NON-CONTRASTED LIVER, SPLEEN, ADRENALS: Evaluation limited by lack of IV contrast. No identified sign ificant masses. PANCREAS: No masses. No peripancreatic inflammatory changes. GALLBLADDER: Surgically absent. RIGHT KIDNEY AND URETER: No suspicious masses. Assessment limited by lack of IV contrast. 1 mm ston e UVJ. Mild hydronephrosis. LEFT KIDNEY AND URETER: No suspicious masses. Assessment limited by lack of IV contrast. No signifi cant calcifications. No hydronephrosis or hydroureter. AORTA AND RETROPERITONEUM: No aneurysm. No retroperitoneal masses or adenopathy. BOWEL AND PERITONEAL CAVITY: Sigmoid diverticulosis. No obvious masses or inflammatory changes. No f ree fluid. APPENDIX: Normal. PELVIS, BLADDER, AND ABDOMINAL WALL:No abnormal masses. No free fluid. Bladder normal. BONES: Nothing acute. OTHER: No other significant finding. IMPRESSION: 1 mm stone right UVJ. Mild hydronephrosis. COMMENT: Quality ID # [id number]: Final reports with documentation of one or more dose reduction techniques (e.g., Automated exposure control, adjustment of the mA and/or kV according to patient size, use of iterative reconstruction technique) TECHNICAL DOCUMENTATION: JOB ID: [id number] [employer]- All Rights Reserved Reading location - IP/workstation name: [email or web address]
[2018-12-07 11:58] LABS: ABSOLUTE BASOPHILS # (AUTO) 0.1 10^3/uL (0.0-0.2); ABSOLUTE EOSINOPHILS # (AUTO) 0.1 10^3/uL (0.0-0.6); ABSOLUTE LYMPHOCYTES (AUTO) 1.4 10^3/uL (0.5-4.7); ABSOLUTE MONOCYTES (AUTO) 0.6 10^3/uL (0.1-1.4); ABSOLUTE NEUT (AUTO) 9.7 10^3/uL (1.7-8.2); BASOPHILS % (AUTO) 0.4 % (0-2); EOSINOPHILS % (AUTO) 0.9 % (0-6); HEMATOCRIT 43.5 % (37.9-51.0); HEMOGLOBIN 14.8 g/dL (13.5-17.0); LYMPHOCYTES % (AUTO) 11.6 % (13-45); MEAN CORPUSCULAR HEMOGLOBIN 31.3 pg (27.0-33.4); MEAN CORPUSCULAR HGB CONC 33.9 g/dL (32.0-36.0); MEAN CORPUSCULAR VOLUME 92 fl (80-97); MONOCYTES % (AUTO) 5.1 % (3-13); PLATELET COUNT 222 10^3/uL (150-450); RED BLOOD COUNT 4.72 10^6/uL (4.35-5.55); RED CELL DISTRIBUTION WIDTH 14.3 % (11.5-14.0); TOTAL CELLS COUNTED % (AUTO) 100 %; WHITE BLOOD COUNT 11.8 10^3/uL (4.0-10.5)
[2018-12-07 12:12] LABS: ALBUMIN 4.5 g/dL (3.5-5.0); ALKALINE PHOSPHATASE 75 U/L (38-126); ANION GAP 8 (5-19); ASPARTATE AMINO TRANSFERASE 57 U/L (17-59); BILIRUBIN,DIRECT 0.1 mg/dL (0.0-0.4); BILIRUBIN,TOTAL 0.4 mg/dL (0.2-1.3); BLOOD UREA NITROGEN 15 mg/dL (7-20); CALCIUM 10.8 mg/dL (8.4-10.2); CARBON DIOXIDE 26 mmol/L (22-30); CHLORIDE 106 mmol/L (98-107); GLUCOSE 113 mg/dL (75-110); POTASSIUM 5.1 mmol/L (3.6-5.0); TOTAL PROTEIN 7.5 g/dL (6.3-8.2)
[2018-12-07] MEDS ORDERED: MORPHINE SULFATE 10 MG/ML INJ IV ONE (12:32)
[2018-12-07] MEDS ORDERED: HYDROMORPHONE HCL INJ/PF 2 MG/ML AMPULE IV ONE (13:01)
--- NOTE | 2018-12-07 13:13 | ER Document Report ---
ED GI/ - General Chief Complaint: Flank Pain Stated Complaint: FLANK PAIN Time Seen by Provider: 12/07/18 11:11 Notes: Patient has pain in the right lower abdomen that started this morning. He said he noticed blood in his urine on Sunday and Sunday but did not have significant pain at that time. Has been nauseated but has not vomited. Had a low-grade 99 degree temperature. No history of kidney stones. Patient denies any chest pains or shortness of breath or difficulty breathing. Brought in by EMS. In route here, he received Toradol 30 mg IV, Zofran, fentanyl 150 mcg IV as well as some IV fluid. Patient says his pain was helped somewhat but still there. TRAVEL OUTSIDE OF THE [place] IN LAST 30 DAYS: No - Related Data Allergies/Adverse Reactions: No Known Allergies Allergy (Verified 12/07/18 11:10) Past Medical History - Social History Smoking Status: Current Every Day Smoker Family History: None, Reviewed & Not Pertinent Patient has suicidal ideation: No Patient has homicidal ideation: No - Past Medical History Cardiac Medical History: Reports: Hx Coronary Artery Disease, Hx Heart Attack - Stents placed at [facility], recathed 2 months ago at [facility], Hx Hypertension Pulmonary Medical History: Reports: Hx Bronchitis, Hx COPD, Hx Pneumonia GI Medical History: Reports: Hx Pancreatitis - About 5 years ago, and unknown etiology Musculoskeletal Medical History: Reports Hx Arthritis - back/fusion 2006 Skin Medical History: Reports Hx MRSA - multiple I&D Infectious Medical History: Reports: Hx MRSA Past Surgical History: Reports: Hx Cardiac Catheterization - 11 days ago, see HPI, Hx Cholecystectomy, Hx Orthopedic Surgery - L4-L5 fusion (2006) left L2-L3 laminectomy with decompression - Immunizations Hx Diphtheria, Pertussis, Tetanus Vaccination: Yes - 2009 Review of Systems - Review of Systems Notes: CONSTITUTIONAL : Denies fever. CARDIOVASCULAR: Denies chest pain. RESPIRATORY: Denies cough, chest congestion, or shortness of breath. GASTROINTESTINAL: See HPI. Patient has pain in the right lower quadrant. No pain in the epigastrium or right upper quadrant. Nauseated but not vomiting. GENITOURINARY: Denies difficulty or painful urinating, urinary frequency. Patient did note hematuria starting couple days ago. Physical Exam - Vital signs Vitals: Temp Pulse Resp BP Pulse Ox 98.2 F 85 14 124/86 H 95 12/07/18 11:02 12/07/18 11:02 12/07/18 11:02 12/07/18 11:02 12/07/18 11:02 Interpretation: Normal Notes: PHYSICAL EXAMINATION: GENERAL: Well-appearing, no acute distress. Appears uncomfortable, holding his right lower quadrant of the abdomen. Vital signs are all essentially normal. HEAD: Atraumatic, normocephalic. NECK: Normal range of motion, supple. LUNGS: Breath sounds clear and equal bilaterally. HEART: Regular rate and rhythm without murmurs heard. ABDOMEN: Protuberant. Soft, nontender except for some very mild tenderness in the right lower quadrant. No guarding or rebound or masses felt. No tenderness in the epigastrium. Course - Re-evaluation Re-evalutation: 12/07/18 13:13 Patient's lipase noted at 3732, but other LFTs are all normal. Patient has no epigastric pain or tenderness. Has had some indigestion recently. When que stioned further, patient says he did have an episode of pancreatitis about 5 years ago. Patient says he does not drink alcohol. He is on a large number of medications after having an acute PR a couple of months ago treated with cardiac cath and stents at a hospital out of replaced by [facility]. He returned here a couple of months ago after that episode and was transferred to [facility] where he had a re-cath for some additional blockage.. Spoke with Dr. Blue 12/07/18 14:26 Pain relatively relieved with Dilaudid IV. Patient also received a couple liters of saline. Ambulatory and feels better. Went over the likelihood the patient should pass a stone of this size in this location and a relatively short time. Also went over the patient's elevated lipase, but otherwise normal liver function test. He probably has an inexplicable primary pancreatitis, although they could be many medications several of which may cause this kind of problem as well. He has primary care at [facility] and advised him to follow-up there Sunday as he needs to see senior system operator about his lipase elevation. - Vital Signs Vital signs: Temp Pulse Resp BP Pulse Ox 97.8 F 72 20 137/96 H 100 12/07/18 14:21 12/07/18 14:21 12/07/18 14:21 12/07/18 14:21 12/07/18 14:21 - Laboratory Result Diagrams: 12/07/18 11:42 12/07/18 11:42 Laboratory results interpreted by me: 12/07/18 12/07/18 12/07/18 11:20 11:42 11:42 WBC 11.8 H RDW 14.3 H Lymph % (Auto) 11.6 L Absolute Neuts (auto) 9.7 H Seg Neutrophils % 82.0 H Potassium 5.1 H Glucose 113 H Calcium 10.8 H Lipase 3732.0 H Urine Protein 30 H Urine Ketones TRACE H Urine Blood MODERATE H Urine Urobilinogen 2.0 H - Diagnostic Test Radiology reviewed: Image reviewed, Reports reviewed - CT scan shows a 1 mm stone in the distal right ureter with mild hydronephrosis. Otherwise normal. CT scan does not show any evidence of pancreatitis. No masses. Discharge - Discharge Clinical Impression: Right ureteral stone, Pancreatitis Condition: Stable Disposition: HOME, SELF-CARE Additional Instructions: KIDNEY STONE: You are passing or have passed a kidney stone. These stones are usually due to increased calcium or uric acid concentrations in your urine. Stones within the kidney itself are not painful. The pain occurs as the stone leaves the kidney to pass down the long tube, called the ureter, leading to the bladder. If the stone is small, it will usually pass by itself. Most patients can pass the stone at home. You will usually receive medications for pain, nausea or vomiting, and sometimes a medication to assist in passing the kidney stone. However, if the pain is very severe or if vomiting prevents you from taking oral pain medications, you may need to return for further treatment. Drink three or four quarts of fluids per day. You will be given pain medication (if needed) and urine strainers. Strain all your urine to see if the stone passes. If your doctor has asked you to bring the stone in for analysis, return with the stone once it has passed. Return if pain or vomiting become severe, if you develop a high fever, if you are unable to pass your urine, or if other unusual symptoms occur. TORADOL INJECTION: You have been given an injection of ketorolac tromethamine (Toradol). This is an excellent, safe drug for pain control. It also has potent antiinflammatory action. You should have significant pain relief within about one hour. Toradol is not addicting and is non-sedating. It does not interfere with driving or work. Call or return if you develop itching, hives, shortness of breath, or rash. PAIN MEDICATION INJECTION: You have received an injection of a pain medication. You should experience significant pain relief within 45 minutes. This drug is a narcotic -- it will impair your judgement, slow your reaction time and make you sleepy (as well as relieve your pain). Narcotics also can cause nausea. You should not drive, work with machinery, or perform any task requiring mental alertness until all effects of the medication are gone -- six to eight hours. Do not take any alcohol, or sedatives, and do not take any other medication without checking with your physician. ANTINAUSEA MEDICATION: You have been given a medication to suppress nausea and vomiting. This type of medication can be given as a shot, pill, or suppository. It will usually last for many hours. Pills and shots usually last six to eight hours, suppositories last about 12 hours. For the typical illness, only one or two doses of the medication may be necessary. Mild lightheadedness may occur. This type of medicine can cause drowsiness. Do not drive or operate dangerous machinery while under its influence. Do not mix with alcohol. See your doctor at once if you have muscle spasms or tightness, or uncontrollable motions (particularly of the neck, mouth, or jaw). Persistent vomiting or severe lightheadedness should also be evaluated by the physician. ORAL NARCOTIC MEDICATION: You have been given a prescription for pain control. This medication is a narcotic. It's best taken with food, as nausea can result if taken on an empty stomach. Don't operate machinery or drive within six hours of taking this medication. Do not combine this medicine with alcohol, or with any medication which can cause sedation (such as cold tablets or sleeping pills) unless you get permission from the physician. Narcotics tend to cause constipation. If possible, drink plenty of fluids and eat a diet high in fiber and fruits. Please be aware that prescription narcotics also have the potential for abuse. People become addicted to these medications because of the general sense of wellbeing that they induce. This feeling along with a significant reduction in tension, anxiety, and aggression provides a stimulating seductive quality to these drugs. Once your pain is under control, we encourage you to discard your unused narcotics. FLOMAX (tamsulosin): Flomax is a medicine that shrinks the prostate gland. It helps relieve symptoms of benign prostatic hypertrophy, such as frequent urination, weak stream, and inadequate emptying. It has been shown to dilate the ureter (tube leading from the kidney to the bladder) and help in passing kidney stones Flomax usually causes no side effects. You may notice slight tiredness and dizziness for a few days. Some patients develop nasal congestion. Rarely, impotence can occur. If the symptoms are bothersome and don't improve with continued use, call your doctor. Contact your doctor or return if you have fainting spells, severe weakness or dizziness, shortness of breath, or rash. Pancreatitis Pancreatitis is an inflammation of the pancreas, an organ at the back of your abdomen. The pancreas produces insulin and enzymes that digest your food. Pancreatitis can be caused by gallstones in the bile duct, by alcohol or viruses, or by excess fat or calcium in the blood stream. Occasionally, pancreatitis occurs when a stomach ulcer russell through into the pancreas. We try to find the cause of pancreatitis, but some tests can't be done until the pancreas heals. The usual symptoms of pancreatitis are pain in the pit of the stomach that goes straight through to the back, vomiting, and low-grade fever. Severe cases require hospital admission, but many patients with mild pancreatitis do well at home. You will probably need medicine for pain and for vomiting. Sometimes we prescribe medicine to decrease stomach acid secretion and to decrease flow of pancreatic juices. Start with a diet of clear liquids (soda pop, juices). When the pain is decreasing, you can add some simple starches (potato, toast, applesauce). Avoid proteins and fats until you are completely painfree. When you're better, your doctor may suggest treatment to prevent future pancreatitis (such as gallbladder removal). Avoid alcohol forever. Get immediate treatment for any future episodes. Contact your doctor at once or return here if you have increasing pain, s hortness of breath, general swelling, increasing size of the abdomen, continued vomiting, muscle spasms, or other new symptoms. FOLLOW-UP CARE: If you have been referred to a physician for follow-up care, call the physicians office for an appointment as you were instructed or within the next two days. If you experience worsening or a significant change in your symptoms, notify the physician immediately or return to the Emergency Department at any time for re-evaluation. You should follow-up with your primary care provider on Sunday to obtain a referral to a senior system operator to investigate further and treat your pancreatitis. If you develop significant pain in the middle of the upper abdomen, have excessive vomiting, or start running a fever, you should return for us to reevaluate your condition. You should likely pass the stone that is located in your distal right ureter sometime in the next day or 2. Its very small in its right at the entrance into the bladder and once its in there, it will pass without any problem. Again, return if you develop worsening symptoms and pain and can controlled with the medication prescribed, if you have vomiting and cannot keep down fluids and food and medications, or if you start running a fever, you should return for us to reevaluate your condition. Prescriptions: Hydromorphone HCl [Dilaudid 2 mg Tablet] 2 mg PO Q4HP PRN #12 tablet PRN Reason: Tamsulosin HCl [Flomax] 0.4 mg PO DAILY #7 cap.er.24h Ondansetron [Zofran Odt 4 mg Tablet] 1 - 2 tab PO Q4H PRN #15 tab.rapdis PRN Reason: For Nausea/Vomiting
[2018-12-07 14:23] VITALS: BP 137/96
== END 2018-12-07 14:41 | disposition home or self-care (01) ==
LOC: ER 10:50
DX: N13.2 Hydronephrosis with renal and ureteral calculous obstruction (principal); K85.90 Acute pancreatitis without necrosis or infection, unspecified; R11.0 Nausea; R31.0 Gross hematuria; R10.31 Right lower quadrant pain; R10.813 Right lower quadrant abdominal tenderness; F17.200 Nicotine dependence, unspecified, uncomplicated; I25.10 Atherosclerotic heart disease of native coronary artery without angina pectoris; I10 Essential (primary) hypertension; J44.9 Chronic obstructive pulmonary disease, unspecified; Z87.19 Personal history of other diseases of the digestive system; Z79.899 Other long term (current) drug therapy
CPT/HCPCS: 99284; 96361; 96374; 96375; 36415; 83690; 85025; 80053; 81001; 74176; J2270; J1170; J7030

== ENCOUNTER 2018-12-13 13:35 | Emergency (ER) | payer BC, OTHER ==
--- NOTE | 2018-12-13 14:02 | ER Document Report ---
ED Medical Screen (RME) - General Chief Complaint: Abdominal Pain Stated Complaint: UPPER ABDOMINAL PAIN Time Seen by Provider: 12/13/18 13:59 Mode of Arrival: Ambulatory Information source: Patient Notes: 53-year-old male presented to ED for complaint of left lateral rib and chest pain. He states he was seen here recently for kidney stones and they told him that he had pancreatitis then he went home and fell and he has a bruise to the left side just below the low his nipple line where he fell landing on his ribs. He states he did go get a x-ray they told him he did not have any rib fractures but he did have a left lateral pleural thickening. There was no fractures there. He states the area where they are saying he had the pleural thickening is where his pain is. He was afraid that the pancreatitis was causing all of this. I have explained to him that the pancreas is completely different organ. We will re-x-ray the chest while he is in the pit area. I have greeted and performed a rapid initial assessment of this patient. A comprehensive ED assessment and evaluation of the patient, analysis of test results and completion of medical decision making process will be conducted by an additional ED providers. TRAVEL OUTSIDE OF THE [place] IN LAST 30 DAYS: No - Related Data Allergies/Adverse Reactions: No Known Allergies Allergy (Verified 12/07/18 11:10) Past Medical History - Past Medical History Cardiac Medical History: Reports: Hx Coronary Artery Disease, Hx Heart Attack - Stents placed at [facility] [place], recathed 2 months ago at [facility], Hx Hypertension Pulmonary Medical History: Reports: Hx Bronchitis, Hx COPD, Hx Pneumonia Renal/ Medical History: Denies: Hx Peritoneal Dialysis GI Medical History: Reports: Hx Pancreatitis - About 5 years ago, and unknown etiology Musculoskeltal Medical History: Reports Hx Arthritis - back/fusion 2006 Skin Medical History: Reports Hx MRSA - multiple I&D Infectious Medical History: Reports: Hx MRSA Past Surgical History: Reports: Hx Cardiac Catheterization - 11 days ago, see HPI, Hx Cholecystectomy, Hx Orthopedic Surgery - L4-L5 fusion (2006) left L2-L3 laminectomy with decompression - Immunizations Hx Diphtheria, Pertussis, Tetanus Vaccination: Yes - 2009
[2018-12-13] MEDS ORDERED: ACETAMINOPHEN 325 MG TABLET PO ONE (14:04)
[2018-12-13 14:51] LABS: ABSOLUTE BASOPHILS # (AUTO) 0.1 10^3/uL (0.0-0.2); ABSOLUTE EOSINOPHILS # (AUTO) 0.3 10^3/uL (0.0-0.6); ABSOLUTE LYMPHOCYTES (AUTO) 1.9 10^3/uL (0.5-4.7); ABSOLUTE MONOCYTES (AUTO) 0.4 10^3/uL (0.1-1.4); ABSOLUTE NEUT (AUTO) 5.6 10^3/uL (1.7-8.2); BASOPHILS % (AUTO) 0.7 % (0-2); EOSINOPHILS % (AUTO) 3.2 % (0-6); HEMATOCRIT 43.3 % (37.9-51.0); HEMOGLOBIN 14.5 g/dL (13.5-17.0); LYMPHOCYTES % (AUTO) 23.4 % (13-45); MEAN CORPUSCULAR HEMOGLOBIN 30.9 pg (27.0-33.4); MEAN CORPUSCULAR HGB CONC 33.6 g/dL (32.0-36.0); MEAN CORPUSCULAR VOLUME 92 fl (80-97); MONOCYTES % (AUTO) 5.3 % (3-13); PLATELET COUNT 219 10^3/uL (150-450); SEGMENTED NEUTROPHILS % (AUTO) 67.4 % (42-78); TOTAL CELLS COUNTED % (AUTO) 100 %; WHITE BLOOD COUNT 8.2 10^3/uL (4.0-10.5)
--- NOTE | 2018-12-13 14:53 | RADIOLOGY REPORT (SQ) ---
EXAM DESCRIPTION: CHEST 2 VIEWS COMPLETED DATE/TIME: 12/13/2018 2:44 pm REASON FOR STUDY: left lateral chest pain COMPARISON: 10/24/2018 EXAM PARAMETERS: NUMBER OF VIEWS: two views TECHNIQUE: Digital Frontal and Lateral radiographic views of the chest acquired. RADIATION DOSE: NA LIMITATIONS: none FINDINGS: LUNGS AND PLEURA: No opacities, masses or pneumothorax. No pleural effusion. MEDIASTINUM AND HILAR STRUCTURES: No masses or contour abnormalities. HEART AND VASCULAR STRUCTURES: Heart normal size. No evidence for failure. BONES: No acute findings. HARDWARE: None in the chest. OTHER: No other significant finding. IMPRESSION: NO ACUTE RADIOGRAPHIC FINDING IN THE CHEST. TECHNICAL DOCUMENTATION: JOB ID: [id number] [employer]- All Rights Reserved Reading location - IP/workstation name: [email or web address]
[2018-12-13 15:06] LABS: APPEARANCE,URINE CLEAR; BILIRUBIN,URINE NEGATIVE (NEGATIVE); COLOR,URINE YELLOW; GLUCOSE, URINE NEGATIVE (NEGATIVE); KETONES,URINE NEGATIVE (NEGATIVE); PROTEIN,URINE NEGATIVE (NEGATIVE); URINE SPECIFIC GRAVITY 1.023; UROBILINOGEN,URINE NEGATIVE mg/dL (<2.0)
[2018-12-13 15:12] LABS: ALBUMIN 4.2 g/dL (3.5-5.0); ALKALINE PHOSPHATASE 72 U/L (38-126); ANION GAP 8 (5-19); ASPARTATE AMINO TRANSFERASE 55 U/L (17-59); BILIRUBIN,DIRECT 0.1 mg/dL (0.0-0.4); BILIRUBIN,TOTAL 0.4 mg/dL (0.2-1.3); BLOOD UREA NITROGEN 15 mg/dL (7-20); CALCIUM 9.8 mg/dL (8.4-10.2); CARBON DIOXIDE 26 mmol/L (22-30); CHLORIDE 105 mmol/L (98-107); CREATINE KINASE 97 U/L (55-170); GLUCOSE 208 mg/dL (75-110); POTASSIUM 4.2 mmol/L (3.6-5.0); TOTAL PROTEIN 7.1 g/dL (6.3-8.2)
[2018-12-13 15:25] LABS: TROPONIN I < 0.012 ng/mL
[2018-12-13] MEDS ORDERED: NORMAL SALINE 1000 ML 1,000 ML IV ONE (15:36)
[2018-12-13] MEDS ORDERED: FENTANYL CITRATE INJ/PF 100 MCG/2 ML AMPUL IV ONE (15:36)
--- NOTE | 2018-12-13 15:38 | ER Document Report ---
ED GI/ - General Chief Complaint: Rib Pain Stated Complaint: UPPER ABDOMINAL PAIN Time Seen by Provider: 12/13/18 13:59 Primary Care Provider: EVELIN GONZALEZ PA-C [Primary Care Provider] - Follow up as needed Mode of Arrival: Ambulatory Information source: Patient Notes: Patient states that 6 days ago he was getting out of a truck and lost his balance and hit his ribs on the vehicle. Patient's had pain to the left rib area since then. Patient denies any cough shortness of breath nausea or vomiting. Patient denies any fever. TRAVEL OUTSIDE OF THE [place] IN LAST 30 DAYS: No - HPI Patient complains to provider of: Other - Left sided chest pain. No: Abdominal pain Onset: Last week Timing/Duration: Persistent Quality of pain: Achy Pain Level: 4 Location: Other - Left lower rib tenderness Associated symptoms: Chest pain. denies: Dizzy, Urinary hesitancy, Vomiting Exacerbated by: Movement, Coughing, Deep breathing Relieved by: Denies Similar symptoms previously: No Recently seen / treated by doctor: No - Related Data Allergies/Adverse Reactions: No Known Allergies Allergy (Verified 12/07/18 11:10) Past Medical History - General Information source: Patient - Social History Smoking Status: Never Smoker Chew tobacco use (# tins/day): No Frequency of alcohol use: None Drug Abuse: None Lives with: Family Family History: None, Reviewed & Not Pertinent Patient has suicidal ideation: No Patient has homicidal ideation: No - Past Medical History Cardiac Medical History: Reports: Hx Coronary Artery Disease, Hx Heart Attack - Stents placed at [facility], [facility], Hx Hypertension Pulmonary Medical History: Reports: Hx Bronchitis, Hx COPD, Hx Pneumonia Renal/ Medical History: Denies: Hx Peritoneal Dialysis GI Medical History: Reports: Hx Pancreatitis - About 5 years ago, and unknown etiology Musculoskeletal Medical History: Reports Hx Arthritis - back/fusion 2006 Skin Medical History: Reports Hx MRSA - multiple I&D Infectious Medical History: Reports: Hx MRSA Past Surgical History: Reports: Hx Cardiac Catheterization - 11 days ago, see HPI, Hx Cholecystectomy, Hx Orthopedic Surgery - L4-L5 fusion (2006) left L2-L3 laminectomy with decompression - Immunizations Hx Diphtheria, Pertussis, Tetanus Vaccination: Yes - 2009 Review of Systems - Review of Systems Constitutional: No symptoms reported. denies: Fever, Recent illness EENT: No symptoms reported Cardiovascular: Chest pain Respiratory: Hurts to breathe. denies: Cough, Short of breath Gastrointestinal: No symptoms reported. denies: Nausea, Vomiting Genitourinary: No symptoms reported. denies: Flank pain Male Genitourinary: No symptoms reported Musculoskeletal: No symptoms reported. denies: Back pain Skin: No symptoms reported Hematologic/Lymphatic: No symptoms reported Neurological/Psychological: No symptoms reported Physical Exam - Vital signs Vitals: Temp Pulse Resp BP Pulse Ox 98 F 89 20 120/77 98 12/13/18 14:07 12/13/18 14:07 12/13/18 14:07 12/13/18 14:07 12/13/18 14:07 - General General appearance: Appears well, Alert In distress: None - HEENT Head: Normocephalic, Atraumatic Eyes: Normal Conjunctiva: Normal Nasal: Normal Mouth/Lips: Normal Mucous membranes: Normal Neck: Normal, Supple. No: Lymphadenopathy - Respiratory Respiratory status: No respiratory distress Chest status: Tender, Pain with deep breathing Breath sounds: Normal Chest palpation: Tender - L lower costal tenderness - Cardiovascular Rhythm: Regular Heart sounds: S1 appreciated, S2 appreciated Murmur: No - Abdominal Inspection: Morbidly Obese Distension: No distension Bowel sounds: Normal Tenderness: Tender - LUQ tenderness - Back Back: Normal, Nontender - Extremities General upper extremity: Normal inspection, Normal ROM General lower extremity: Normal inspection, Normal ROM - Neurological Neuro grossly intact: Yes Cognition: Normal N[place] Coma Scale Eye Opening: Spontaneous [place] Coma Scale Verbal: Oriented [place] Coma Scale Motor: Obeys Commands [place] Coma Scale Total: 15 - Psychological Associated symptoms: Normal affect, Normal mood - Skin Skin Temperature: Warm Skin Moisture: Dry Skin Color: Normal Course - Re-evaluation Re-evalutation: 12/13/18 19:10 No change in delta troponin. Patient with a heart score of 2. CTA reviewed, no concern for PE or occult fracture or infection at this time. The patient has atypical chest pain as the patient's chest pain is not suggestive of pulmonary embolus, cardiac ischemia, aortic dissection, or other serious etiology. Given the extremely low risk of these diagnoses, evaluation for these possibilities does not appear to be indicated at this time. Patient has been instructed to return if the symptoms worsen or change in any way. - Vital Signs Vital signs: Temp Pulse Resp BP Pulse Ox 98 F 89 18 107/76 98 12/13/18 14:07 12/13/18 14:07 12/13/18 19:00 12/13/18 19:00 12/13/18 19:00 - Laboratory Result Diagrams: 12/13/18 14:30 12/13/18 14:30 Laboratory results interpreted by me: 12/13/18 14:30 Glucose 208 H 12/14/18 02:03 Labs- Entire Visit 12/13/18 12/13/18 12/13/18 14:30 14:30 14:30 WBC 8.2 RBC 4.70 Hgb 14.5 Hct 43.3 MCV 92 MCH 30.9 MCHC 33.6 RDW 14.0 Plt Count 219 Lymph % (Auto) 23.4 Leslie % (Auto) 5.3 Eos % (Auto) 3.2 Baso % (Auto) 0.7 Absolute Neuts (auto) 5.6 Absolute Lymphs (auto) 1.9 Absolute Monos (auto) 0.4 Absolute Eos (auto) 0.3 Absolute Basos (auto) 0.1 Seg Neutrophils % 67.4 Sodium 138.9 Potassium 4.2 Chloride 105 Carbon Dioxide 26 Anion Gap 8 BUN 15 Creatinine 1.17 Est GFR ( Amer) > 60 Est GFR (MDRD) Non-Af > 60 Glucose 208 H Calcium 9.8 Total Bilirubin 0.4 Direct Bilirubin 0.1 Neonat Total Bilirubin Not Reportable Neonat Direct Bilirubin Not Reportable Neonat Indirect Bili Not Reportable AST 55 ALT 89 Alkaline Phosphatase 72 Creatine Kinase 97 CK-MB (CK-2) 0.50 Troponin I < 0.012 Total Protein 7.1 Albumin 4.2 Lipase 175.9 Urine Color Urine Appearance Urine pH Ur Specific [place] Urine Protein Urine Glucose (UA) Urine Ketones Urine Blood Urine Nitrite (Reflex) Urine Bilirubin Urine Urobilinogen Leukocyte Esterase Rfl Urine RBC (Auto) Urine WBC (Reflex) Urine Mucus (Auto) Urine Ascorbic Acid 12/13/18 12/13/18 14:30 17:42 WBC RBC Hgb Hct MCV MCH MCHC RDW Plt Count Lymph % (Auto) Leslie % (Auto) Eos % (Auto) Baso % (Auto) Absolute Neuts (auto) Absolute Lymphs (auto) Absolute Monos (auto) Absolute Eos (auto) Absolute Basos (auto) Seg Neutrophils % Sodium Potassium Chloride Carbon Dioxide Anion Gap BUN Creatinine Est GFR ( Amer) Est GFR (MDRD) Non-Af Glucose Calcium Total Bilirubin Direct Bilirubin Neonat Total Bilirubin Neonat Direct Bilirubin Neonat Indirect Bili AST ALT Alkaline Phosphatase Creatine Kinase CK-MB (CK-2) Troponin I < 0.012 Total Protein Albumin Lipase Urine Color YELLOW Urine Appearance CLEAR Urine pH 5.0 Ur Specific [place] 1.023 Urine Protein NEGATIVE Urine Glucose (UA) NEGATIVE Urine Ketones NEGATIVE Urine Blood NEGATIVE Urine Nitrite (Reflex) NEGATIVE Urine Bilirubin NEGATIVE Urine Urobilinogen NEGATIVE Leukocyte Esterase Rfl NEGATIVE Urine RBC (Auto) 0 Urine WBC (Reflex) 2 Urine Mucus (Auto) FEW Urine Ascorbic Acid NEGATIVE - Diagnostic Test Radiology reviewed: Reports reviewed - EKG Interpretation by Me EKG shows normal: Sinus rhythm Rate: Normal Rhythm: NSR Additional EKG results interpreted by me: 12/13/18 19:[address] elevation, QTc 450 Discharge - Discharge Clinical Impression: Chest wall pain Condition: Stable Disposition: HOME, SELF-CARE Instructions: Anti-Inflammatory Medication ([facility]), Chest Wall Pain ([facility]) Additional Instructions: Return immediately for any new or worsening symptoms Followup with your primary care provider, call tomorrow to make a followup appointment You were seen today for chest pain. The exact cause of your pain is unclear. However, based on your cardiac enzyme testing, chest x-ray, and EKG it does not appear that it is from an immediately life-threatening cause at this time. Although your testing here is normal is critical that you follow-up with your primary care physician for continued evaluation of this chest pain and possible stress testing. I recommended you see your physician within the next 24-48 hours to be evaluated for consideration of a stress test. Please return to emergency department immediately if you have worsening of your chest pain, shortness of breath, vomiting, become unable to exert yourself due to pain or difficulty breathing, you pass out, or have any pain that radiates into your arms, jaw, or back. Please also return if you have any additional symptoms that are concerning to you. Prescriptions: Lidocaine [Lidoderm 5% (700 mg) Transdermal Patch] 1 patch TP DAILY PRN #10 adh..patch PRN Reason: Naproxen [Naprosyn 250 Nmg Tablet] 1 tab PO BID #14 tablet Referrals: WICK,EVELIN L, PA-C [Primary Care Provider] - Follow up as needed
--- NOTE | 2018-12-13 16:46 | RADIOLOGY REPORT (SQ) ---
EXAM DESCRIPTION: CT CHEST WITH COMPLETED DATE/TIME: 12/13/2018 4:28 pm REASON FOR STUDY: fall, L lower rib, LUQ pain COMPARISON: 02/28/2013 TECHNIQUE: CT scan of the chest performed using helical scanning technique with dynamic intravenous contrast injection. Images reviewed with lung, soft tissue and bone windows. Reconstructed coronal and sagittal MPR and MIP images reviewed. All images stored on PACS. All CT scanners at this facility use dose modulation, iterative reconstruction, and/or weight based d osing when appropriate to reduce radiation dose to as low as reasonably achievable (ALARA). [facility]: Dose Right [facility]: CareDose [facility]: Dose Right [facility]: Teradose 4D [facility]: Countercepts CONTRAST TYPE AND DOSE: 100 mL Omnipaque 350- low osmolar. RENAL FUNCTION: BUN 15 creatinine 1.17 RADIATION DOSE: . LIMITATIONS: None. FINDINGS: LUNGS AND PLEURA: Minimal atelectasis in the left base. Mild pleural thickening in the le ft lower hemithorax. HILAR AND MEDIASTINAL STRUCTURES: No identified masses or abnormal nodes. HEART AND VASCULAR STRUCTURES: No aneurysm or dissection. No central pulmonary emboli. No pericardi al effusion. HARDWARE: None in the chest. UPPER ABDOMEN: See separate report of the CT of the abdomen. THYROID AND OTHER SOFT TISSUES: No masses. No adenopathy. BONES: No significant finding. OTHER: No other significant finding. IMPRESSION: Mild pleural thickening in the left lower hemithorax. No pneumothorax. No rib fracture s. TECHNICAL DOCUMENTATION: JOB ID: [id number] Quality ID # [id number]: Final reports with documentation of one or more dose reduction techniques (e.g., Au tomated exposure control, adjustment of the mA and/or kV according to patient size, use of iterative reconstruction technique) 2010 [employer]- All Rights Reserved Reading location - IP/workstation name: [email or web address]
--- NOTE | 2018-12-13 16:53 | RADIOLOGY REPORT (SQ) ---
EXAM DESCRIPTION: CT ABD/PELVIS WITH IV ONLY COMPLETED DATE/TIME: 12/13/2018 4:28 pm REASON FOR STUDY: fall, L Lower rib, LUQ pain COMPARISON: 12/07/2018 CONTRAST TYPE AND DOSE: contrast/concentration: Isovue 350.00 mg/ml; Total Contrast Delivered: 100.0 ml; Total Saline Delivered: 36.6 ml RENAL FUNCTION: BUN 15; creatinine 1.17 TECHNIQUE: CT scan of the chest performed using helical scanning technique with dynamic intravenous contrast injection. Images reviewed with lung, soft tissue and bone windows. Reconstructed coronal a nd sagittal MPR images reviewed. All images stored on PACS. CT scan of the abdomen and pelvis performed with intravenous and without oral contrastusing helical s jason technique with dynamic intravenous contrast injection. Images reviewed with lung, soft tissu e and bone windows. Reconstructed coronal and sagittal MPR images reviewed. Delayed images for eval uation of the urinary system also acquired and evaluated. All images stored on PACS. All CT scanners at this facility use dose modulation, iterative reconstruction, and/or weight based d osing when appropriate to reduce radiation dose to as low as reasonably achievable (ALARA). [facility]: Dose Right [facility]: CareDose [facility]: Dose Right [facility]: Teradose 4D [facility]: Smart Next 2 Greatness RADIATION DOSE: CT Rad equipment meets quality standard of care and radiation dose reduction techniq ues were employed. CTDIvol: 19.8 - 21.1 mGy. DLP: 2776 mGy-cm. . LIMITATIONS: None. FINDINGS: CHEST: LUNGS AND PLEURA: No opacities, nodules, masses. No pneumothorax. No effusions. HILAR AND MEDIASTINAL STRUCTURES: No identified masses or abnormal nodes. HEART AND VASCULAR STRUCTURES: No aneurysm or dissection. No central pulmonary emboli. No pericardi al effusion. HARDWARE: None. THYROID AND OTHER SOFT TISSUES: No masses. No adenopathy. BONES: No evidence of acute fracture. Well-healed fracture deformities are seen of the left 7th and 8th ribs laterally. OTHER: No other significant finding. ABDOMEN AND PELVIS: LIVER: Normal size. Hepatic steatosis. No masses. No dilated ducts. SPLEEN: Normal size. No focal lesions. PANCREAS: No masses. No significant calcifications. No adjacent inflammation or peripancreatic fluid collections. Pancreatic duct not dilated. GALLBLADDER: Surgically absent. ADRENAL GLANDS: No significant masses or asymmetry. RIGHT KIDNEY AND URETER: No solid masses. No significant calcification. No hydronephrosis or hydroure ter. LEFT KIDNEY AND URETER: No solid masses. No significant calcification. No hydronephrosis or hydrouret er. AORTA AND VESSELS: No aneurysm. No dissection. Renal arteries, SMA, celiac without stenosis. RETROPERITONEUM: No retroperitoneal adenopathy, hemorrhage or masses. BOWEL AND PERITONEAL CAVITY: Scattered colonic diverticula without focal inflammatory changes. APPENDIX: Normal. ABDOMINAL WALL: No masses. Small fat containing umbilical and inguinal hernias. PELVIS: No mass or free fluid. Normal bladder. BONES: Status post L4/5 intrapedicular screw in paraspinous bg fusion. Multilevel spondylotic de luna es. No suspicious lytic or blastic osseous lesions. OTHER: No other significant finding. IMPRESSION: No evidence of acute osseous or visceral injury. Chronic and incidental findings as det eli above. NORMAL CT OF THE ABDOMEN AND PELVIS WITH ORAL AND INTRAVENOUS CONTRAST. TECHNICAL DOCUMENTATION: JOB ID: [id number] Quality ID # [id number]: Final reports with documentation of one or more dose reduction techniques (e.g., Au tomated exposure control, adjustment of the mA and/or kV according to patient size, use of iterative reconstruction technique) 2010 [employer]- All Rights Reserved Reading location - IP/workstation name: [email or web address]
[2018-12-13] MEDS ORDERED: LIDOCAINE 5% (700 MG) TRANSDERMAL ADH..PATCH TP ONE (17:12)
[2018-12-13] MEDS ORDERED: HYDROCODONE/ACETAMINOPHEN 5-325 MG (6 TAB/ER DISP) PO PRN (19:12)
[2018-12-13 19:23] VITALS: BP 107/76
--- NOTE | 2018-12-15 00:28 | EKG REPORT ---
SEVERITY:- NORMAL ECG - SINUS RHYTHM : Confirmed by: José Mart 15-Dec-2018 00:27:22
== END 2018-12-13 19:23 | disposition home or self-care (01) ==
LOC: ER 13:35
DX: R07.89 Other chest pain (principal); R07.1 Chest pain on breathing; W22.8XXA Striking against or struck by other objects, initial encounter; Y93.89 Activity, other specified; R10.812 Left upper quadrant abdominal tenderness; I25.10 Atherosclerotic heart disease of native coronary artery without angina pectoris; I10 Essential (primary) hypertension; J44.9 Chronic obstructive pulmonary disease, unspecified; Z95.5 Presence of coronary angioplasty implant and graft
CPT/HCPCS: 93005; 99284; 96361; 96374; 36415; 82553; 82550; 83690; 85025; 80053; 81001; 84484; 71046; 71260; 74177; 93010; J3010; J7030

== ENCOUNTER 2019-03-27 22:04 | Emergency (ER) | payer BC, OTHER ==
[2019-03-27] MEDS ORDERED: ACETAMINOPHEN 325 MG TABLET PO ONE (23:27)
--- NOTE | 2019-03-27 23:42 | ER Document Report ---
ED Medical Screen (RME) - General Chief Complaint: Fall Injury Stated Complaint: FALL,RIGHT ARM INJURY,ARM AND BACK PAIN Time Seen by Provider: 03/27/19 23:40 Primary Care Provider: EVELIN GONZALEZ PA-C [Primary Care Provider] - Follow up as needed Notes: Patient is a 53-year-old male who presents emergency department with a chief complaint of fall. Patient reports earlier tonight he was standing on a 5 foot dresser when he fell backwards. Patient reports he did strike an object on his way down. Patient reports having a vertical abrasion to the right upper back. Patient also complains of right wrist and right hand pain. Patient denies any head injury or loss of consciousness. TRAVEL OUTSIDE OF THE [place] IN LAST 30 DAYS: No - Related Data Allergies/Adverse Reactions: No Known Allergies Allergy (Verified 12/07/18 11:10) Home Medications: Cardiac meds. ASA Past Medical History - Social History Chew tobacco use (# tins/day): No Frequency of alcohol use: None Drug Abuse: None - Past Medical History Cardiac Medical History: Reports: Hx Coronary Artery Disease, Hx Heart Attack - Stents placed at [facility], recathed 2 months ago at [facility], Hx Hypertension Pulmonary Medical History: Reports: Hx Bronchitis, Hx COPD, Hx Pneumonia Renal/ Medical History: Denies: Hx Peritoneal Dialysis GI Medical History: Reports: Hx Pancreatitis - About 5 years ago, and unknown etiology Musculoskeltal Medical History: Reports Hx Arthritis - back/fusion 2006 Skin Medical History: Reports Hx MRSA - multiple I&D Infectious Medical History: Reports: Hx MRSA Past Surgical History: Reports: Hx Cardiac Catheterization - 11 days ago, see HPI, Hx Cholecystectomy, Hx Orthopedic Surgery - L4-L5 fusion (2006) left L2-L3 laminectomy with decompression - Immunizations Hx Diphtheria, Pertussis, Tetanus Vaccination: Yes - 2009 Physical Exam - Vital signs Vitals: Temp Pulse Resp BP Pulse Ox 98.3 F 99 18 135/85 H 95 03/27/19 22:28 03/27/19 22:28 03/27/19 22:28 03/27/19 22:28 03/27/19 22:28 Course - Re-evaluation Re-evalutation: 03/27/19 23:41 Patient does not have any cervical, thoracic or lumbar midline tenderness. Patient does have a vertical abrasion noted to the right upper back. There is tenderness around the site. No ecchymosis at this time. Patient also has a deformity and swelling to the right wrist. Patient has diffuse tenderness to all digits of the right hand. Will order x-ray and patient did receive Tylenol in triage. Patient was placed in a sling to help elevate the right upper extremity and was given an ice pack. - Vital Signs Vital signs: Temp Pulse Resp BP Pulse Ox 98.3 F 99 18 135/85 H 95 03/27/19 22:28 03/27/19 22:28 03/27/19 22:28 03/27/19 22:28 03/27/19 22:28 Doctor's Discharge - Discharge Referrals: EVELIN GONZALEZ PA-C [Primary Care Provider] - Follow up as needed
--- NOTE | 2019-03-28 00:54 | RADIOLOGY REPORT (SQ) ---
EXAM DESCRIPTION: XR CHEST 2 VIEWS COMPLETED DATE/TME: 03/27/2019 23:40 CLINICAL HISTORY: 53 years, Male, right posterior rib pain, fall COMPARISON: None available NUMBER OF VIEWS: 2 TECHNIQUE: LIMITATIONS: None. FINDINGS: Cardiomediastinal mediastinal silhouette is enlarged. Chronic parenchymal lung change. No consolidation. No effusion or pneumothorax IMPRESSION: Chronic changes. No acute process. If there is suspicion for focal bony injury, dedicated bone radiography of the area in question is advised. copyright 2010 [employer]- All Rights Reserved
--- NOTE | 2019-03-28 00:55 | RADIOLOGY REPORT (SQ) ---
EXAM DESCRIPTION: XR HAND 3 OR MORE VIEWS COMPLETED DATE/TME: 03/27/2019 23:40 CLINICAL HISTORY: 53 years, Male, right hand pain, fall COMPARISON: None. NUMBER OF VIEWS: Three TECHNIQUE: Three views of the right hand LIMITATIONS: None. FINDINGS: There is no acute fracture or dislocation. No large soft tissue swelling. No radiopaque foreign body. IMPRESSION: No acute fracture or dislocation copyright 2010 [employer]- All Rights Reserved
--- NOTE | 2019-03-28 01:01 | RADIOLOGY REPORT (SQ) ---
EXAM DESCRIPTION: XR WRIST 3 OR MORE VIEWS COMPLETED DATE/TME: 03/27/2019 23:23 CLINICAL HISTORY: 53 years, Male, pain and tenderness COMPARISON: None. NUMBER OF VIEWS: Three TECHNIQUE: Three views of the right wrist LIMITATIONS: None. FINDINGS: There is a thin lucency seen only on the AP view of the cortex of the distal radius. The carpal bones are intact. The ulna is intact. IMPRESSION: Thin lucency seen only on the AP view of the distal radius which may represent a nondisplaced fracture or vascular channel. copyright 2010 [employer]- All Rights Reserved
[2019-03-28] MEDS ORDERED: MORPHINE SULFATE 10 MG/ML INJ IM ONE (04:45)
[2019-03-28] MEDS ORDERED: HYDROCODONE/ACETAMINOPHEN 5-325 MG (6 TAB/ER DISP) PO PRN (05:24)
--- NOTE | 2019-03-28 05:24 | ER Document Report ---
ED General - General Chief Complaint: Fall Injury Stated Complaint: FALL,RIGHT ARM INJURY,ARM AND BACK PAIN Time Seen by Provider: 03/27/19 23:40 Primary Care Provider: EVELIN GONZALEZ PA-C [ALLIED HEALTH PROFESSIONAL] - Follow up in 3-5 days LUI SANDOVAL MD [ACTIVE PROVISIONAL STAFF] - Follow up in 3-5 days Notes: 53-year-old male presents with back abrasion and right wrist/hand pain after falling off a dresser. Patient was standing on a dresser to hang up a tapestry. Patient states he was standing on the dresser and fell backwards. Patient denies hitting his head or LOC. Patient states most of his pain is in his wrist. Patient denies any other pain anywhere else. TRAVEL OUTSIDE OF THE [place] IN LAST 30 DAYS: No - Related Data Allergies/Adverse Reactions: No Known Allergies Allergy (Verified 12/07/18 11:10) Home Medications: Cardiac meds. ASA Past Medical History - Social History Smoking Status: Current Every Day Smoker Chew tobacco use (# tins/day): No Frequency of alcohol use: None Drug Abuse: None Family History: None, Reviewed & Not Pertinent Patient has suicidal ideation: No Patient has homicidal ideation: No - Past Medical History Cardiac Medical History: Reports: Hx Coronary Artery Disease, Hx Heart Attack - Stents placed at [facility], recathed 2 months ago at [facility], Hx Hypertension Pulmonary Medical History: Reports: Hx Bronchitis, Hx COPD, Hx Pneumonia Renal/ Medical History: Denies: Hx Peritoneal Dialysis GI Medical History: Reports: Hx Pancreatitis - About 5 years ago, and unknown etiology Musculoskeletal Medical History: Reports Hx Arthritis - back/fusion 2006 Skin Medical History: Reports Hx MRSA - multiple I&D Infectious Medical History: Reports: Hx MRSA Past Surgical History: Reports: Hx Cardiac Catheterization - 11 days ago, see HPI, Hx Cholecystectomy, Hx Orthopedic Surgery - L4-L5 fusion (2006) left L2-L3 laminectomy with decompression - Immunizations Hx Diphtheria, Pertussis, Tetanus Vaccination: Yes - 2009 Review of Systems - Review of Systems Notes: Constitutional: Negative for fever. HENT: Negative for sore throat. Eyes: Negative for visual changes. Cardiovascular: Negative for chest pain. Respiratory: Negative for shortness of breath. Gastrointestinal: Negative for abdominal pain, vomiting or diarrhea. Genitourinary: Negative for dysuria. Musculoskeletal: Positive for back pain and right wrist pain. Skin: Negative for rash. Neurological: Negative for headaches, weakness or numbness. 10 point ROS negative except as marked above and in HPI. Physical Exam - Vital signs Vitals: Temp Pulse Resp BP Pulse Ox 98.3 F 99 18 135/85 H 95 03/27/19 22:28 03/27/19 22:28 03/27/19 22:28 03/27/19 22:28 03/27/19 22:28 - Notes Notes: GENERAL: Well-appearing, well-nourished and in no acute distress. HEAD: Atraumatic, normocephalic. EYES: Extraocular movements intact, sclera anicteric, conjunctiva are normal. NECK: Normal range of motion, supple without lymphadenopathy or JVD. EXTREMITIES: Swelling to right wrist. Tenderness over lateral wrist. Movement limited due to pain. Radial pulse 2+. FROM Of right elbow. No tenderness to elbow. Cap refill < 2 sec. Finger ROM intact. Otherwise, normal range of motion, no pitting or edema. No clubbing or cyanosis. BACK: No spinal tenderness. MIld abrasion noted. NEUROLOGICAL: Cranial nerves II through XII grossly intact. Normal speech, normal gait. PSYCH: Normal mood, normal affect. SKIN: Warm, Dry, normal turgor, no rashes or lesions noted. Course - Re-evaluation Re-evalutation: 03/28/19 nontoxic, well-appearing 53-year-old male presents after fall from dresser. No LOC or head injury. Abrasion to back. Tenderness to right lateral wrist. Distal neurovascular intact. Chest x-ray is negative. Right hand x-ray is negative. Right wrist x-ray shows possible nondisplaced fracture of the distal radius. Patient was placed in a sugar tong splint and given a sling. Patient given pain control with sedation warning. Patient given close follow-up with Ortho and with PCP. Return precautions given. Patient voices understanding and agrees with plan of care. - Vital Signs Vital signs: Temp Pulse Resp BP Pulse Ox 98.3 F 99 18 135/85 H 95 03/27/19 22:28 03/27/19 22:28 03/27/19 22:28 03/27/19 22:28 03/27/19 22:28 Procedures - Immobilization Right Wrist Pre-Proc Neuro Vasc Exam: Normal Immobilizer type: Sugar tong Performed by: PCT Post-Proc Neuro Vasc Exam: Normal, Unchanged from pre-exam Alignment checked and good: Yes Discharge - Discharge Clinical Impression: Distal radius fracture, right Qualifiers: Encounter type: initial encounter Fracture type: closed Fracture morphology: unspecified fracture morphology Qualified Code(s): S52.501A - Unspecified fracture of the lower end of right radius, initial encounter for closed fracture Fall Qualifiers: Encounter type: initial encounter Qualified Code(s): W19.XXXA - Unspecified fall, initial encounter Condition: Stable Disposition: HOME, SELF-CARE Instructions: Fractured Radius ([facility]) Additional Instructions: Your x-ray showed a possible nondisplaced fracture of the distal radius of your right wrist. Your right hand x-ray was normal and your chest x-ray was also normal. Please take pain medication as prescribed. Please do not drink or drive while taking as it may make you drowsy. Please follow-up with Ortho doctor listed in 3 to 5 days. Please follow-up with your primary care doctor in 3 to 5 days. Return immediately to ER if you start having any worsening symptoms, including worsening pain, swelling, tingling to fingers, fingers turning blue, chest pain, shortness of breath, fever, nausea/vomiting, or any other symptoms that are concerning to you. Prescriptions: Hydrocodone/Acetaminophen [[place] 5-325 mg Tablet] 1 tab PO Q8H #15 tablet Referrals: EVELIN GONZALEZ PA-C [ALLIED HEALTH PROFESSIONAL] - Follow up in 3-5 days LUI SANDOVAL MD [ACTIVE PROVISIONAL STAFF] - Follow up in 3-5 days
[2019-03-28 05:33] VITALS: BP 112/67
== END 2019-03-28 05:32 | disposition home or self-care (01) ==
LOC: ER 22:04
DX: S52.501A Unspecified fracture of the lower end of right radius, initial encounter for closed fracture (principal); S20.411A Abrasion of right back wall of thorax, initial encounter; W08.XXXA Fall from other furniture, initial encounter; F17.200 Nicotine dependence, unspecified, uncomplicated; I10 Essential (primary) hypertension; Z86.14 Personal history of Methicillin resistant Staphylococcus aureus infection; Z98.1 Arthrodesis status; I25.2 Old myocardial infarction; Z79.82 Long term (current) use of aspirin
CPT/HCPCS: 99283; 96372; 71046; 73130; 73110; 29125; J2270

== ENCOUNTER 2019-07-13 11:16 | Emergency (ER) | payer BC, OTHER ==
[2019-07-13 11:52] LABS: ABSOLUTE BASOPHILS # (AUTO) 0.1 10^3/uL (0.0-0.2); ABSOLUTE EOSINOPHILS # (AUTO) 0.3 10^3/uL (0.0-0.6); ABSOLUTE LYMPHOCYTES (AUTO) 1.7 10^3/uL (0.5-4.7); ABSOLUTE MONOCYTES (AUTO) 0.3 10^3/uL (0.1-1.4); ABSOLUTE NEUT (AUTO) 4.3 10^3/uL (1.7-8.2); BASOPHILS % (AUTO) 0.9 % (0-2); HEMATOCRIT 41.8 % (37.9-51.0); HEMOGLOBIN 14.5 g/dL (13.5-17.0); LYMPHOCYTES % (AUTO) 25.1 % (13-45); MEAN CORPUSCULAR HEMOGLOBIN 31.7 pg (27.0-33.4); MEAN CORPUSCULAR HGB CONC 34.6 g/dL (32.0-36.0); MEAN CORPUSCULAR VOLUME 92 fl (80-97); MONOCYTES % (AUTO) 4.6 % (3-13); PLATELET COUNT 159 10^3/uL (150-450); RED BLOOD COUNT 4.56 10^6/uL (4.35-5.55); RED CELL DISTRIBUTION WIDTH 14.5 % (11.5-14.0); SEGMENTED NEUTROPHILS % (AUTO) 64.4 % (42-78); TOTAL CELLS COUNTED % (AUTO) 100 %; WHITE BLOOD COUNT 6.6 10^3/uL (4.0-10.5)
--- NOTE | 2019-07-13 12:02 | RADIOLOGY REPORT (SQ) ---
EXAM DESCRIPTION: CHEST SINGLE VIEW IMAGES COMPLETED DATE/TIME: 07/13/2019 11:46 am REASON FOR STUDY: chest pain COMPARISON: Two-view chest 03/28/2019, 12/13/2018 EXAM PARAMETERS: NUMBER OF VIEWS: One view. TECHNIQUE: Single frontal radiographic view of the chest acquired. RADIATION DOSE: NA LIMITATIONS: None. FINDINGS: LUNGS AND PLEURA: No opacities, masses or pneumothorax. No pleural effusion. MEDIASTINUM AND HILAR STRUCTURES: No masses. Contour normal. HEART AND VASCULAR STRUCTURES: Heart normal in size. Normal vasculature. BONES: Lower cervical fusion hardware HARDWARE: None in the chest. OTHER: No other significant finding. IMPRESSION: NO ACUTE RADIOGRAPHIC FINDING IN THE CHEST. TECHNICAL DOCUMENTATION: JOB ID: [id number] 2010 [id number]- All Rights Reserved Reading location - IP/workstation name: [email or web address]
[2019-07-13 12:11] LABS: ALKALINE PHOSPHATASE 73 U/L (38-126); ANION GAP 6 (5-19); ASPARTATE AMINO TRANSFERASE 100 U/L (17-59); BILIRUBIN,TOTAL 0.4 mg/dL (0.2-1.3); BLOOD UREA NITROGEN 14 mg/dL (7-20); CALCIUM 9.3 mg/dL (8.4-10.2); CARBON DIOXIDE 27 mmol/L (22-30); CHLORIDE 103 mmol/L (98-107); CREATINE KINASE 1406 U/L (55-170); GLUCOSE 151 mg/dL (75-110); POTASSIUM 4.5 mmol/L (3.6-5.0); TOTAL PROTEIN 6.5 g/dL (6.3-8.2)
[2019-07-13 12:22] LABS: TROPONIN I < 0.012 ng/mL
--- NOTE | 2019-07-13 13:21 | ER Document Report ---
Entered by CHAGO BARTLETT SCRIBE 07/13/19 1200 Acting as scribe for:STEPHANI CROWLEY MD ED Cardiac - General Chief Complaint: Chest Pain Stated Complaint: CHEST PAIN Time Seen by Provider: 07/13/19 11:45 Primary Care Provider: EVELIN GONZALEZ PA-C [Primary Care Provider] - Follow up as needed Mode of Arrival: Ambulatory Information source: Patient Notes: This 53 year old male patient presents to the emergency department today with complaints of chest pain. Patient had an NJ on 10/13/2017, treated at [facility] outside of [place], [place] where he had two stents placed. He underwent another cardiac catheterization on 07/07/2019 at [facility] in [place] and had another 3 stents placed, 5 in total. He reports he had a non-STEMI at that time. He returned home from [place] on 07/09/2019. Patient reports today he went for "his first walk" since the catheterization six days ago and he thinks he over did it. He did walk about 1/2 mile. He took 2 nitroglycerin at home, his pain went from a 9-7 at the first nitro and to a 4 after the second nitro. EMS arrived and gave him a third nitroglycerin, his blood pressure dropped to the 90s systolic, he was given a normal saline fluid bolus and when his blood pressure returned to the 110 range, he got a fourth nitroglycerin. After the fourth nitroglycerin his pain completely resolved. At this time he is pain-free. The patient reports he has an appointment with his aquatic physiotherapist tomorrow at 1 PM. TRAVEL OUTSIDE OF THE [place] IN LAST 30 DAYS: No - Related Data Allergies/Adverse Reactions: No Known Allergies Allergy (Verified 12/07/18 11:10) Past Medical History - General Information source: Patient - Social History Smoking Status: Former Smoker - Quit 6 days ago on 07/07/2019 when he had his heart attack. Cigarette use (# per day): No Chew tobacco use (# tins/day): No Smoking Education Provided: No Frequency of alcohol use: None Drug Abuse: None Occupation: retired Lives with: Family Family History: None, Reviewed & Not Pertinent Patient has homicidal ideation: No - Past Medical History Cardiac Medical History: Reports: Hx Coronary Artery Disease, Hx Heart Attack - NJ 10/13/18 and 07/07/19, Hx Hypercholesterolemia, Hx Hypertension Pulmonary Medical History: Reports: Hx Bronchitis, Hx COPD, Hx Pneumonia Endocrine Medical History: Reports: Hx Hypothyroidism GI Medical History: Reports: Hx Pancreatitis - About 5 years ago, and unknown etiology Musculoskeletal Medical History: Reports Hx Arthritis - back/fusion 2006 Skin Medical History: Reports Hx MRSA - multiple I&D Infectious Medical History: Reports: Hx MRSA Past Surgical History: Reports: Hx Cardiac Catheterization, Hx Cholecystectomy, Hx Coronary Stent - 2 stents on 10/13/2018, 3 stents on 07/07/2019, Hx Orthopedic Surgery - L4-L5 fusion (2006) left L2-L3 laminectomy with decompression - Immunizations Hx Diphtheria, Pertussis, Tetanus Vaccination: Yes - 2009 Review of Systems - Review of Systems Constitutional: No symptoms reported EENT: No symptoms reported Cardiovascular: See HPI, Chest pain Respiratory: No symptoms reported Gastrointestinal: No symptoms reported Genitourinary: No symptoms reported Male Genitourinary: No symptoms reported Musculoskeletal: No symptoms reported Skin: No symptoms reported Hematologic/Lymphatic: No symptoms reported Neurological/Psychological: No symptoms reported -: Yes All other systems reviewed and negative Physical Exam - Vital signs Vitals: Temp Pulse Ox 98.2 F 98 07/13/19 11:16 07/13/19 11:16 - Notes Notes: Physical Exam: General: Alert, appears well. HEENT: Normocephalic. Atraumatic. PERRL. Extraocular movements intact. Oropharynx clear. Neck: Supple. Non-tender. Respiratory: No respiratory distress. Clear and equal breath sounds bilaterally. Chest wall was not tender to palpate. Cardiovascular: Regular rate and rhythm. Abdominal: Obese. Non-tender. No distension. Normal Bowel Sounds. Back: No gross abnormalities. Extremities: Moves all four extremities. Upper extremities: Normal inspection. Normal ROM. Lower extremities: Normal inspection. No edema. Normal ROM. Neurological: Normal cognition. AAOx4. Normal speech. Psychological: Normal affect. Normal Mood. Skin: Warm. Dry. Normal color. Course - Re-evaluation Re-evalutation: 07/13/19 14:43 The patient's EKG is completely normal. The total CK is 1406, 1 year ago it was 97. The exertion today was not likely enough to cause that kind of CK release. He is on a statin but has been for several years with no recent changes. Serial troponins were undetectable today. At this time he continues to remain pain-free and comfortable. He is encouraged to drink plenty of fluids throughout the day and evening today to start washing out the elevated CK enzymes. He is also going to rest and not do any exertional activities. He has nitroglycerin in case he has a return of his chest pain. He is to take his nitroglycerin and dial 911 if he has a return of his chest pain. He was provided with copies of his EKG and lab work from today and last year to take to see his aquatic physiotherapist tomorrow. - Vital Signs Vital signs: Temp Pulse Resp BP Pulse Ox 98.2 F 17 102/72 99 07/13/19 11:16 07/13/19 14:01 07/13/19 14:00 07/13/19 14:01 - Laboratory Result Diagrams: 07/13/19 11:32 07/13/19 11:32 Laboratory results interpreted by me: 07/13/19 07/13/19 07/13/19 11:32 11:32 11:32 RDW 14.5 H Sodium 136.2 L Glucose 151 H AST 100 H ALT 105 H Creatine Kinase 1406 H CK-MB (CK-2) 16.90 H - Diagnostic Test Radiology reviewed: Image reviewed, Reports reviewed - Chest x-ray does not show acute radiographic abnormalities. - EKG Interpretation by Nd EKG shows normal: Sinus rhythm, [place], Intervals, QRS Complexes, ST-T Waves Rate: Normal - 71 Rhythm: NSR Discharge - Discharge Clinical Impression: Chest pain due to coronary artery disease Rhabdomyolysis Qualifiers: Rhabdomyolysis type: non-traumatic Qualified Code(s): M62.82 - Rhabdomyolysis Condition: Stable Disposition: HOME, SELF-CARE Additional Instructions: Angina Episode Your physician has diagnosed the pain you experienced as an episode of angina. Angina occurs when a portion of the heart muscle temporarily lacks oxygen. It does not cause any permanent heart damage, but serves as a warning. Hospitalization is not necessary now. Evaluation of your cardiac condition, and medical therapy for angina will be necessary. It's important you be sure to keep all appointments and take medication exactly as prescribed. Angina is usually treated with a type of "nitrate" medication. This is available as ointment, pills, or sublingual (under the tongue) tablets. Depending on your clinical situation, other medications may be added to help control angina. These may include beta blockers or calcium blockers. If episodes of angina are occurring with increased frequency, or if chest pain lasts longer than 15 minutes or does not respond to nitroglycerin, you must seek emergency medical care immediately. Continue all of your regular medications. Drink plenty of fluids to help wash out the elevated CK muscle enzymes found in your blood work today. Rest today, do not exert yourself. If your chest pain returns, take your nitroglycerin and dial 911. Follow-up with your aquatic physiotherapist tomorrow as scheduled. RETURN TO THE EMERGENCY ROOM IF ANY NEW OR WORSENING SYMPTOMS. Referrals: OCHOA TODD MD [NO LOCAL MD] - Follow up tomorrow I personally performed the services described in the documentation, reviewed and edited the documentation which was dictated to the scribe in my presence, and it accurately records my words and actions.
[2019-07-13 15:08] VITALS: BP 110/80
--- NOTE | 2019-07-13 22:17 | EKG REPORT ---
SEVERITY:- NORMAL ECG - SINUS RHYTHM : Confirmed by: José Mart 13-Jul-2019 22:17:20
== END 2019-07-13 15:10 | disposition home or self-care (01) ==
LOC: ER 11:16
DX: I25.10 Atherosclerotic heart disease of native coronary artery without angina pectoris (principal); M62.82 Rhabdomyolysis; R07.9 Chest pain, unspecified; I10 Essential (primary) hypertension; I25.2 Old myocardial infarction; J44.9 Chronic obstructive pulmonary disease, unspecified; Z95.5 Presence of coronary angioplasty implant and graft; Z87.891 Personal history of nicotine dependence; Z87.01 Personal history of pneumonia (recurrent)
CPT/HCPCS: 36415; 71045; 80053; 82550; 82553; 84484; 85025; 93005; 93010; 99285

== ENCOUNTER → 2019-07-30 | Outpatient (CLI) | payer BC, OTHER ==
--- NOTE | 2019-07-30 13:34 | RADIOLOGY REPORT (SQ) ---
EXAM DESCRIPTION: CT ABDOMEN COMBO IMAGES COMPLETED DATE/TIME: 07/30/2019 1:14 pm REASON FOR STUDY: K85.00 IDIOPATHIC ACUTE PANCREATITIS WITHOUT NECROSIS OR INFECTION K85.00 IDIOPAT HIC ACUTE PANCREATITIS WITHOUT NECROSIS OR INF R10.11 RIGHT UPPER QUADRANT PAIN COMPARISON: None. TECHNIQUE: CT scan of the abdomen performed with and without intravenous contrast, and with oral con trast. Contrasted imaging performed using helical scanning technique with dynamic intravenous contras t injection. Images reviewed with lung, soft tissue, and bone windows. Reconstructed coronal and sagi ttal MPR images reviewed. Delayed images for evaluation of the urinary system also acquired and evalu ated. All images stored on PACS. All CT scanners at this facility use dose modulation, iterative reconstruction, and/or weight based d osing when appropriate to reduce radiation dose to as low as reasonably achievable (ALARA). [facility]: Dose Right [facility]: CareDose [facility]: Dose Right [facility]: Teradose 4D [facility]: el? CONTRAST TYPE AND DOSE: contrast/concentration: Isovue 350.00 mg/ml; Total Contrast Delivered: 65.0 ml; Total Saline Delivered: 77.0 ml RENAL FUNCTION: Creatinine 0.97 RADIATION DOSE: CT Rad equipment meets quality standard of care and radiation dose reduction techniq ues were employed. CTDIvol: 19.7 - 33.8 mGy. DLP: 3213 mGy-cm.. LIMITATIONS: None. FINDINGS: LOWER CHEST: Coronary atherosclerosis. LIVER: Normal size. No masses. No dilated ducts. SPLEEN: Normal size. No focal lesions. PANCREAS: No masses. No significant calcifications. No adjacent inflammation or peripancreatic fluid collections. Pancreatic duct not dilated. Pancreas enhances uniformly. GALLBLADDER: Surgically absent. ADRENAL GLANDS: No significant masses or asymmetry. RIGHT KIDNEY AND URETER: No solid masses. No significant calcifications. No hydronephrosis or hyd roureter. LEFT KIDNEY AND URETER: No solid masses. No significant calcifications. No hydronephrosis or hydr oureter. AORTA AND VESSELS: No aneurysm. No dissection. Abberent left hepatic artery off the left gastric. Ac cessory right renal artery Renal arteries, SMA, celiac without stenosis. RETROPERITONEUM: No retroperitoneal adenopathy, hemorrhage or masses. BOWEL AND PERITONEAL CAVITY: No masses or inflammatory changes. No free fluid or peritoneal masses. APPENDIX: Not visualized. ABDOMINAL WALL: No mass. Small fat containing umbilical hernia. BONES: No acute bony abnormality. No suspicious osseous lesions. Partially visualized lumbar teacher aide clerical ior fusion hardware. OTHER: No other significant finding. IMPRESSION: 1. No evidence of acute intra-abdominal process. Specifically, no imaging findings sug gestive of pancreatitis or pancreatic necrosis. 2. Prior cholecystectomy. No biliary ductal dilation. TECHNICAL DOCUMENTATION: JOB ID: [id number] Quality ID # [id number]: Final reports with documentation of one or more dose reduction techniques (e.g., Au tomated exposure control, adjustment of the mA and/or kV according to patient size, use of iterative reconstruction technique) 2010 [employer]- All Rights Reserved Reading location - IP/workstation name: [email or web address]
== END ==
LOC: RAD 12:10
PROVIDERS: ATTEND Internal Medicine Gastroenterology
DX: K85.00 Idiopathic acute pancreatitis without necrosis or infection (principal); K42.9 Umbilical hernia without obstruction or gangrene; R10.11 Right upper quadrant pain
CPT/HCPCS: 74170

== ENCOUNTER 2019-08-13 02:13 | Emergency (ER) | payer BC, OTHER ==
[2019-08-13 02:40] LABS: ABSOLUTE EOSINOPHILS # (AUTO) 0.3 10^3/uL (0.0-0.6); ABSOLUTE LYMPHOCYTES (AUTO) 2.6 10^3/uL (0.5-4.7); ABSOLUTE MONOCYTES (AUTO) 0.5 10^3/uL (0.1-1.4); ABSOLUTE NEUT (AUTO) 4.3 10^3/uL (1.7-8.2); BASOPHILS % (AUTO) 0.6 % (0-2); EOSINOPHILS % (AUTO) 3.6 % (0-6); HEMATOCRIT 42.1 % (37.9-51.0); HEMOGLOBIN 14.5 g/dL (13.5-17.0); LYMPHOCYTES % (AUTO) 33.5 % (13-45); MEAN CORPUSCULAR HGB CONC 34.5 g/dL (32.0-36.0); MEAN CORPUSCULAR VOLUME 93 fl (80-97); MONOCYTES % (AUTO) 6.7 % (3-13); PLATELET COUNT 173 10^3/uL (150-450); RED BLOOD COUNT 4.54 10^6/uL (4.35-5.55); RED CELL DISTRIBUTION WIDTH 14.9 % (11.5-14.0); SEGMENTED NEUTROPHILS % (AUTO) 55.6 % (42-78); TOTAL CELLS COUNTED % (AUTO) 100 %; WHITE BLOOD COUNT 7.8 10^3/uL (4.0-10.5)
[2019-08-13] MEDS ORDERED: ONDANSETRON 4 MG TAB.RAPDIS PO ONE ×2 (02:50→03:00)
[2019-08-13 02:52] LABS: ALBUMIN 4.1 g/dL (3.5-5.0); ALKALINE PHOSPHATASE 68 U/L (38-126); ANION GAP 6 (5-19); ASPARTATE AMINO TRANSFERASE 51 U/L (17-59); BILIRUBIN,TOTAL 0.3 mg/dL (0.2-1.3); BLOOD UREA NITROGEN 13 mg/dL (7-20); CALCIUM 9.5 mg/dL (8.4-10.2); CARBON DIOXIDE 26 mmol/L (22-30); CHLORIDE 107 mmol/L (98-107); CREATINE KINASE 217 U/L (55-170); GLUCOSE 136 mg/dL (75-110); TOTAL PROTEIN 6.7 g/dL (6.3-8.2)
--- NOTE | 2019-08-13 02:56 | ER Document Report ---
ED Cardiac - General TRAVEL OUTSIDE OF THE [place] IN LAST 30 DAYS: No <JANE STAPLETON - Last Filed: 08/13/19 08:11> <TONY NICHOLAS - Last Filed: 08/13/19 16:40> - General Chief Complaint: Chest Pain Stated Complaint: CHEST PAIN Primary Care Provider: EDDIE WARD MD [ACTIVE STAFF] - Follow up as needed Notes: 53-year-old male with past medical history hypertension, CAD presenting with acute chest pain starting earlier tonight which woke him out of sleep. Described as a sharp stabbing substernal chest pain that radiated down his left arm. Pt took 3 nitro, 324 asa prior to ems arrival, had 75 mcg fentanyl, 8 mg zofran and 2 more nitro with ems. Currently patient is resting comfortably. He states that pain decreased from a level 10 to a more of a pressure in his chest. He denies any continued radiation of pain down his left arm. States his right fingertips have been numb since his last stent placement in June 2019 (had 3 stents placed following a heart attack). He followed up with his television and radio repairer recently because he had chest pain which she was seen in the emergency department for about 2 weeks ago States that the television and radio repairer believed that the pain was due to the stent placement. Has an extensive cardiac medical history, had an OK in 2019 and another in june 2019. Most recent echo was done 6 months ago. Patient states that they found no abnormal findings at that time. Also notes he has been bruising more often. Currently nauseated. Denies any headache s, fevers, shortness of breath abdominal pain or additional symptoms. Balance Staff Staker is Dr. Garcia with [facility] in [place]. (JANE STAPLETON) - Related Data Allergies/Adverse Reactions: No Known Allergies Allergy (Verified 12/07/18 11:10) Past Medical History - Social History Family History: None, Reviewed & Not Pertinent - Past Medical History Cardiac Medical History: Reports: Hx Coronary Artery Disease, Hx Heart Attack - OK 10/13/18 and 07/07/19, Hx Hypercholesterolemia, Hx Hypertension Pulmonary Medical History: Reports: Hx Bronchitis, Hx COPD, Hx Pneumonia Endocrine Medical History: Reports: Hx Hypothyroidism Renal/ Medical History: Denies: Hx Peritoneal Dialysis GI Medical History: Reports: Hx Pancreatitis - About 5 years ago, and unknown etiology Musculoskeletal Medical History: Reports Hx Arthritis - back/fusion 2006 Skin Medical History: Reports Hx MRSA - multiple I&D Infectious Medical History: Reports: Hx MRSA Past Surgical History: Reports: Hx Cardiac Catheterization, Hx Cholecystectomy, Hx Coronary Stent - 2 stents on 10/13/2018, 3 stents on 07/07/2019, Hx Orthopedic Surgery - L4-L5 fusion (2006) left L2-L3 laminectomy with decompression - Immunizations Hx Diphtheria, Pertussis, Tetanus Vaccination: Yes - 2009 <JANE STAPLETON - Last Filed: 08/13/19 08:11> - Social History Smoking Status: Unknown if Ever Smoked <YUTONY - Last Filed: 08/13/19 16:40> Review of Systems - Review of Systems Constitutional: No symptoms reported EENT: No symptoms reported Cardiovascular: See HPI Respiratory: No symptoms reported Gastrointestinal: No symptoms reported Genitourinary: No symptoms reported Male Genitourinary: No symptoms reported Skin: No symptoms reported <JANE STAPLETON - Last Filed: 08/13/19 08:11> Physical Exam - Vital signs Interpretation: Normal <JANE STAPLETON - Last Filed: 08/13/19 08:11> - Vital signs Vitals: Pulse Ox 91 L 08/13/19 02:17 - Notes Notes: Adult General: GENERAL: Alert, interacts well. No acute distress HEAD: Normocephalic, atraumatic EYES: Extraocular movements intact. ENT: Airway patent. Nares patent. NECK: Full range of motion. Supple. Trachea midline. LUNGS: Clear to auscultation bilaterally, no wheezes, rales, or rhonchi. No respiratory distress. Nontender chest wall. HEART: Regular rate and rhythm. No murmurs, rubs or gallops. ABDOMEN: Soft, nontender. Nondistended. (-) Velva sign. Bowel sounds present in all 4 quadrants. GENITOURINARY: Deferred EXTREMITIES: Moves all 4 extremities spontaneously. No edema, normal radial and dorsal pedis pulses bilaterally. No cyanosis. BACK: No saddle anesthesia, normal distal neurovascular exam. Moves all extremities with full range of motion. NEUROLOGICAL: Alert and oriented x3. Normal speech. Strength 5/ 5 in all extremities. PSYCH: Normal affect, normal mood. SKIN: Warm, dry, normal turgor. No rashes or lesions noted. (JANE STAPLETON) Course - Laboratory Result Diagrams: 08/13/19 02:23 08/13/19 02:23 <JANE STAPLETON - Last Filed: 08/13/19 08:11> - Laboratory Result Diagrams: 08/13/19 02:23 08/13/19 02:23 <TONY NICHOLAS - Last Filed: 08/13/19 16:40> - Re-evaluation Re-evalutation: 08/13/19 05:29 Reevaluated patient. He is resting peacefully in bed. Reports he is no longer any chest pain. Heart rate 66, blood pressure is 125/75. Initial troponin is negative. Pending results of the second troponin. Heart score of 5. 08/13/19 06:50 Second troponin is negative. Patient continues to deny any chest pain. Is resting comfortably in the bed. Discussed case with Dr. Goldberg who is in agreement that patient should be admitted. Cardiology was consulted and they recommend patient be admitted via hospitalist and they will consult on patient. 08/13/19 07:[address] Zarate consulted. He declines admission. Recommends patient television and radio repairer be consulted and troponin repeated. Spoke with Dr. Goldberg who recommends patient be transfered to [facility] where patient had stent placement. Spoke with transfer center at [facility] and currently pending call back. 08/13/19 08:10 Turned patient over to Flores Nicholas NP. Informed patient of turn over and the pending call from [facility]. Third troponin ordered. (JANE STAPLETON) 08/13/19 08:10 Assumed care of patient. Awaiting call back from [facility] for possible t ransfer. 08:20 Transfer accepted at [facility] by Charmaine Lebron AGING DEPARTMENT SUPERVISOR, accepting MD Dr. Dorian Morris. Tele bed pending. I did update the patient in regards to transfer. Resting comfortable. Denies chest pain at this time. 08/13/19 13:13 Patient eating cardiac meal. Patient denies chest pain. I have ordered the patient's daily medications. Awaiting bed placement at [facility]. 08/13/19 16:39 Patient is still waiting for bed placement at [facility]. Patient reports that he would like to sign out AMA and follow-up with television and radio repairer. I did discuss the risk of leaving with a significant cardiac history to include worsening of condition, heart damage, and even . I did speak with [facility] and established him a follow-up appointment with Dr. Garcia tomorrow August 13 at 2 PM. Patient reports he will follow-up with them. Patient given strict return precautions. (TONY NICHOLAS) - Vital Signs Vital signs: Temp Pulse Resp BP Pulse Ox 98.1 F 16 129/88 H 97 08/13/19 14:01 08/13/19 14:01 08/13/19 14:01 08/13/19 14:01 - Laboratory Laboratory results interpreted by me: 08/13/19 08/13/19 02:23 02:23 RDW 14.9 H Glucose 136 H ALT 99 H Creatine Kinase 217 H - EKG Interpretation by Me Additional EKG results interpreted by me: 08/13/19 07:30 EKG is normal sinus rhythm, HR of 75, pr interval 164, qtc 452. No st segment elevation. (JANE STAPLETON) Discharge <JANE STAPLETON - Last Filed: 08/13/19 08:11> <TONY NICHOLAS - Last Filed: 08/13/19 16:40> - Discharge Clinical Impression: Chest pain Qualifiers: Chest pain type: unspecified Qualified Code(s): R07.9 - Chest pain, unspecified Condition: Stable Disposition: [facility] Referrals: EDDIE WARD MD [ACTIVE STAFF] - Follow up as needed
[2019-08-13 03:04] LABS: CREATINE KINASE MB 1.17 ng/mL (<4.55)
[2019-08-13 03:05] LABS: TROPONIN I < 0.012 ng/mL
--- NOTE | 2019-08-13 03:15 | RADIOLOGY REPORT (SQ) ---
CLINICAL INDICATION: chest pain. TECHNIQUE: A single portable AP view was obtained of the chest at 0301 hours. COMPARISON: July 13, 2019. FINDINGS: The cardiomediastinal silhouette is prominent but stable. The lungs are grossly clear. No evidence of effusion or pneumothorax. Chronic parenchymal lung change. IMPRESSION: No evidence of active intrathoracic disease.
[2019-08-13] MEDS ORDERED: ONDANSETRON 4 MG TAB.RAPDIS ONE (03:25)
--- NOTE | 2019-08-13 06:44 | ER Document Report ---
Doctor's Note Notes: 08/13/19 06:41 I was asked to see this 53-year-old male with chest pain by APC who provided initial evaluation . Briefly this is a 53-year-old male with longstanding history of CAD with 2 prior MIs and 5 stents in situ most recent of which was placed 1 month ago by recruiting intern affiliated with [facility]. This man awakened from a sound sleep with midsternal chest pain radiating into his left shoulder associated with diaphoresis nausea and dyspnea. EMS provided a dose of IV fentanyl and nitroglycerin during transport. He is remained pain-free since he has been here. He has had 2- troponins 3 hours apart. His EKG does not show any acute ST changes. He denies any active chest pain at this time. In view of this man's history and current findings I feel he should be admitted and midlevel providers been instructed to contact cardiology to coordinate admission.
--- NOTE | 2019-08-13 09:44 | EKG REPORT ---
SEVERITY:- DEFECTIVE ECG - SINUS OR ECTOPIC ATRIAL RHYTHM LEFT AXIS DEVIATION LOW VOLTAGE IN FRONTAL LEADS BORDERLINE R WAVE PROGRESSION, ANTERIOR LEADS NONSPECIFIC T ABNORMALITIES, ANT-LAT LEADS : Confirmed by: Nando Cleveland MD 13-Aug-2019 09:44:07
--- NOTE | 2019-08-13 09:44 | EKG REPORT ---
SEVERITY:- BORDERLINE ECG - SINUS RHYTHM BORDERLINE T WAVE ABNORMALITIES : Confirmed by: Nando Cleveland MD 13-Aug-2019 09:43:38
[2019-08-13] MEDS ORDERED: LISINOPRIL 10 MG TABLET PO SCH (13:15)
[2019-08-13] MEDS ORDERED: METOPROLOL SUCCINATE 50 MG TAB.SR.24H PO SCH (13:15)
[2019-08-13] MEDS ORDERED: PRASUGREL HCL 10 MG TABLET PO SCH (13:15)
[2019-08-13] MEDS ORDERED: SERTRALINE HCL 50 MG TABLET PO SCH ×2 (13:15→20:00)
[2019-08-13] MEDS ORDERED: LEVOTHYROXINE SODIUM 0.05 MG TABLET PO SCH (13:15)
[2019-08-13 14:30] VITALS: BP 129/88
--- NOTE | 2019-08-13 16:54 | ER Document Report ---
Doctor's Note Notes: 08/13/19 16:[address] I [address] Garcia with [facility] cardiology and gave a detailed history of the patient's events in the ER including labs, etc. He will see the patient in the office tomorrow at 2 pm.
[2019-08-13] MEDS ORDERED: ATORVASTATIN CALCIUM 40 MG TABLET PO SCH (22:00)
== END 2019-08-13 16:45 | disposition left against medical advice (07) ==
LOC: ER 02:13
DX: R07.9 Chest pain, unspecified (principal); R11.0 Nausea; I10 Essential (primary) hypertension; I25.10 Atherosclerotic heart disease of native coronary artery without angina pectoris; Z90.49 Acquired absence of other specified parts of digestive tract; Z98.1 Arthrodesis status; I25.2 Old myocardial infarction
CPT/HCPCS: 93005; 99285; 36415; 82553; 82550; 85025; 80053; 84484; 71045; 93010; S0119